=== PATIENT | male | born 1970 | race Caucasian/White ===

== ENCOUNTER 2017-03-18 10:26 | Inpatient (IN) | payer MEDICAID, OTHER ==
--- NOTE | 2017-03-18 12:40 | ED ---
Psych HPI - General Source: patient, RN notes reviewed Mode of arrival: ambulatory Limitations: no limitations <Stew Vargas - Last Filed: 03/18/17 12:51> <Abdullahi Evangelista - Last Filed: 03/18/17 13:14> - General Chief Complaint: Psychiatric Symptoms Stated Complaint: MENTAL HEALTH Time Seen by Provider: 03/18/17 10:30 - History of Present Illness Initial Comments: 46-year-old male present emergency department for psychiatric coloration. Patient states that he is depressed and suicidal. Patient denies any homicidal thoughts. Patient does admit to drug abuse of cocaine. patient states he does see a psychiatrist and takes medications for depression with states that helping. patient denies any physical complaints at this time. (Stew Vargas) - Related Data Home Medications Medication Instructions Recorded Confirmed Albuterol Sulfate [Ventolin Hfa] 2 puff INHALATION RT-Q4H PRN 03/18/17 03/18/17 Gabapentin [Neurontin] 300 mg PO BID 03/18/17 03/18/17 Hydrocodone/Acetaminophen [[place] 1 tab PO Q6HR PRN 03/18/17 03/18/17 7.5-325] LORazepam [Ativan] 0.5 mg PO QID PRN 03/18/17 03/18/17 Loratadine [Claritin] 10 mg PO DAILY 03/18/17 03/18/17 Metoprolol Succinate [Toprol XL] 25 mg PO DAILY 03/18/17 03/18/17 QUEtiapine FUMARATE [Seroquel Xr] 400 mg PO HS 03/18/17 03/18/17 Tamsulosin HCl [Flomax] 0.4 mg PO DAILY 03/18/17 03/18/17 buPROPion HCL [Wellbutrin SR] 300 mg PO QAM 03/18/17 03/18/17 Review of Systems ROS Other: All systems not noted in ROS Statement are negative. <Stew Vargas - Last Filed: 03/18/17 12:51> ROS Other: All systems not noted in ROS Statement are negative. <Abdullahi Evangelista - Last Filed: 03/18/17 13:14> ROS Statement: Those systems with pertinent positive or pertinent negative responses have been documented in the HPI. Past Medical History Past Medical History: No Reported History History of Any Multi-Drug Resistant Organisms: None Reported Past Surgical History: No Surgical Hx Reported Past Psychological History: Depression, PTSD Smoking Status: Current every day smoker Past Alcohol Use History: None Reported Past Drug Use History: None Reported <Stew Vargas - Last Filed: 03/18/17 12:51> General Exam Limitations: no limitations General appearance: alert, in no apparent distress Head exam: Present: atraumatic, normocephalic, normal inspection Eye exam: Present: normal appearance, PERRL, EOMI. Absent: scleral icterus, conjunctival injection, periorbital swelling ENT exam: Present: normal exam, normal oropharynx, mucous membranes moist Neck exam: Present: normal inspection, full ROM. Absent: tenderness, meningismus, lymphadenopathy Respiratory exam: Present: normal lung sounds bilaterally. Absent: respiratory distress, wheezes, rales, rhonchi, stridor Cardiovascular Exam: Present: regular rate, normal rhythm, normal heart sounds. Absent: systolic murmur, diastolic murmur, rubs, gallop, clicks Neurological exam: Present: alert, oriented X3, CN II-XII intact Psychiatric exam: Present: depressed, flat affect Skin exam: Present: warm, dry, intact, normal color. Absent: rash <Stew Vargas - Last Filed: 03/18/17 12:51> Course <Stew Vargas - Last Filed: 03/18/17 12:51> <Abdullahi Evangelista - Last Filed: 03/18/17 13:14> Vital Signs 03/18/17 10:29 Temperature 98.9 F Pulse Rate 98 Respiratory 20 Rate Blood Pressure 159/77 O2 Sat by Pulse 98 Oximetry - Reevaluation(s) Reevaluation #1: 03/18/17 13:13 I did personally do a [id number] evaluation the patient and did discuss the findings with him. Patient does have a flat affect he does have a depressed personality this time. He was evaluated and treatment by psychiatric service and will be admitted for evaluation inpatient. (Abdullahi Evangelista) Medical Decision Making <Stew Vargas - Last Filed: 03/18/17 12:51> <Abdullahi Evangelista - Last Filed: 03/18/17 13:14> - Medical Decision Making Patient was evaluated by EPS. Patient will be admitted at this time (Stew Vargas) - Lab Data Lab Results 03/18/17 Range/Units 11:10 Urine Opiates Screen Not Detected (NotDetected) Ur Oxycodone Screen Not Detected (NotDetected) Urine Methadone Screen Not Detected (NotDetected) Ur Propoxyphene Screen Not Detected (NotDetected) Ur Barbiturates Screen Not Detected (NotDetected) U Tricyclic Antidepress Not Detected (NotDetected) Ur Phencyclidine Scrn Not Detected (NotDetected) Ur Amphetamines Screen Not Detected (NotDetected) U Methamphetamines Scrn Not Detected (NotDetected) U Benzodiazepines Scrn Detected H (NotDetected) Urine Cocaine Screen Detected H (NotDetected) U Marijuana (THC) Screen Not Detected (NotDetected) Disposition Time of Disposition: 12:51 <Stew Vargas - Last Filed: 03/18/17 12:51> <Abdullahi Evangelista - Last Filed: 03/18/17 13:14> Clinical Impression: Depression, Suicidal ideation Disposition: ADMITTED IP TO THIS [facility] Condition: Stable Referrals: Tigist Butts MD [Primary Care Provider] - 1-2 days
[2017-03-18] MEDS ORDERED: ACETAMINOPHEN TAB 325 MG TAB PO PRN ×2 (16:12→16:59)
[2017-03-18] MEDS ORDERED: MAG HYDROX/AL HYDROX/SIMETH 30 ML CUP PO PRN ×2 (16:12→16:59)
[2017-03-18] MEDS ORDERED: LORazepam 1 MG TAB PO PRN (16:12)
[2017-03-18] MEDS ORDERED: MAGNESIUM HYDROXIDE 2,400 MG/10 ML CUP PO PRN ×2 (16:12→16:59)
[2017-03-18] MEDS ORDERED: QUEtiapine XR 200 MG TAB.ER.24H PO SCH (21:00)
[2017-03-18] MEDS: GABAPENTIN 300 MG CAP PO SCH (21:37)
[2017-03-19 08:53] LABS: Basophils # (A) 0.1 k/uL (0-0.2); Basophils % (A) 1 %; CH 31.6; Eosinophils # (A) 0.2 k/uL (0-0.7); Eosinophils % (A) 4 %; HDW 2.57; HGB 14.7 gm/dL (13.0-17.5); Luc # (Auto) 0.14; Luc % (Auto) 2; Lymphocytes # (A) 1.7 k/uL (1.0-4.8); Lymphocytes % (A) 28 %; MCH 30.5 pg (25.0-35.0); MCHC 32.6 g/dL (31.0-37.0); MCV 93.6 fL (80.0-100.0); Monocytes # (A) 0.4 k/uL (0-1.0); Monocytes % (A) 7 %; Neutrophils # (A) 3.6 k/uL (1.3-7.7); Neutrophils % (A) 59 %; RBC 4.81 m/uL (4.30-5.90); RDW 12.5 % (11.5-15.5); WBC 6.1 k/uL (3.8-10.6); WBC (Perox) 6.26
[2017-03-19 09:24] LABS: ALT 38 U/L (21-72); AST 20 U/L (17-59); Alkaline Phosphatase 48 U/L (38-126); Anion Gap 6 mmol/L; Blood Urea Nitrogen 13 mg/dL (9-20); Calcium 8.3 mg/dL (8.4-10.2); Carbon Dioxide 26 mmol/L (22-30); Chloride 108 mmol/L (98-107); Glucose 82 mg/dL (74-99); Non-African American GFR(MDRD) >60 (>60 ml/min/1.73 sqM); Potassium 3.6 mmol/L (3.5-5.1); Sodium 140 mmol/L (137-145); Total Bilirubin 0.5 mg/dL (0.2-1.3); Total Protein 5.4 g/dL (6.3-8.2)
[2017-03-19] MEDS: GABAPENTIN 300 MG CAP PO SCH ×4 (10:23→20:22)
[2017-03-19] MEDS: buPROPion XL 150 MG TAB.ER.24H PO SCH ×3 (10:23→10:43)
[2017-03-19] MEDS: TAMSULOSIN 0.4 MG CAP.ER.24H PO SCH ×3 (10:24→12:52)
[2017-03-19] MEDS: METOPROLOL SUCCINATE (ER) 25 MG TAB.ER.24H PO SCH ×3 (10:24→12:51)
[2017-03-19] MEDS: LORATADINE 10 MG TAB PO SCH ×3 (10:24→12:51)
[2017-03-19] MEDS: LORazepam 0.5 MG TAB PO PRN (12:05)
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
[2017-03-19] MEDS: HYDROcodone/APAP 5-325MG 1 EACH TAB PO PRN ×2 (12:52→20:25)
[2017-03-19] MEDS ORDERED: IPRATROPIUM-ALBUTEROL 3 ML NEB INHALATION PRN (16:44)
--- NOTE | 2017-03-19 20:04 | CONS ---
DATE OF CONSULTATION: REASON FOR CONSULTATION: A 46-year-old who was admitted to psychiatric unit because of pat presented suicidal. Patient denied any shortness of breath. Patient was complaining of yellowish sputum production. The patient denied any fever, chills, nausea, vomiting. I do not have any chest x-ray available at this point of time. The patient on exam is wheezing and does have expiratory wheezing because of which I started him on steroids. Patient is already on albuterol. The patient will be started on albuterol, ipratropium as well. REVIEW OF SYSTEMS: CONSTITUTIONAL: No fever, no malaise, no fatigue. HEENT: No recent visual problems or hearing problems. Denied any sore throat. CARDIOVASCULAR: No chest pain, orthopnea, PND, no palpitations, no syncope. PULMONARY: No shortness of breath, no cough, no hemoptysis. GASTROINTESTINAL: No diarrhea, no nausea, no vomiting, no abdominal pain. Normoactive bowel sounds. NEUROLOGICAL: No headaches, no weakness, no numbness. HEMATOLOGICAL: Denies any bleeding or petechiae. GENITOURINARY: Denies any burning micturition, frequency, or urgency. MUSCULOSKELETAL/RHEUMATOLOGICAL: Denies any joint pain, swelling, or any muscle pain. ENDOCRINE: Denies any polyuria or polydipsia. The rest of the 14 point review of systems is negative. Home medications include: Albuterol, gabapentin, hydrocodone, acetaminophen, lorazepam, Claritin, metoprolol, Seroquel, Tamsulosin and bupropion. 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 SOCIAL HISTORY: Patient continues to smoke a pack per day. Denied any alcohol abuse or any drug abuse. FAMILY HISTORY: Significant for psychiatric problems. PHYSICAL EXAMINATION: VITAL SIGNS: Temperature is 97.8, pulse 85, respiratory rate 20, blood pressure is 141/88, saturating at 94% on room air. GENERAL: The patient is alert and oriented x3, not in any acute distress. Well developed, well nourished. HEENT: Pupils are round and equally reacting to light. EOMI. No scleral icterus. No conjunctival pallor. Normocephalic, atraumatic. No pharyngeal erythema. No thyromegaly. CARDIOVASCULAR: S1 and S2 present. No murmurs, rubs, or gallops. PULMONARY: Patient has expiratory wheezing. No crackles were appreciated. No bronchophony, egophony. ABDOMEN: Soft, nontender, nondistended, normoactive bowel sounds. No palpable organomegaly. MUSCULOSKELETAL: No joint swelling or deformity. EXTREMITIES: No cyanosis, clubbing, or pedal edema. NEUROLOGICAL: Gross neurological examination did not reveal any focal deficits. SKIN: No rashes. LABORATORY DATA: TSH was done which is low at 0.037. Will obtain FT4 and will follow with the labs. ASSESSMENT AND PLAN: 1. Mild chronic obstructive pulmonary disease with minimal exacerbation. I will start him on inhalation steroids and also the patient will be started on albuterol ipratropium. 2. Low TSH. Will obtain T4. 3. History of cocaine abuse and nicotine abuse. Counseling was provided. 4. Benign prostatic hypertrophy. 5. Hypertension. 6. Peripheral neuropathy for which home medications will be continued. 7. Treatment of depression and suicidal ideation as per primary service. Thank you for letting me participate in this patient's care. Will sign off at this point of time. Please call us back if needed.
[2017-03-19] MEDS: buPROPion SR 150 MG TABLET.ER PO SCH (20:20)
[2017-03-19] MEDS: QUEtiapine 400 MG TAB PO SCH (20:21)
[2017-03-19] MEDS: SYMBICORT 160-4.5 MCG INHALER INHALATION SCH (21:46)
[2017-03-20] MEDS: HYDROcodone/APAP 5-325MG 1 EACH TAB PO PRN ×3 (02:52→18:38)
[2017-03-20 05:37] VITALS: PULSE 88
[2017-03-20] MEDS: SYMBICORT 160-4.5 MCG INHALER INHALATION SCH ×2 (07:07→20:20)
[2017-03-20] MEDS: GABAPENTIN 300 MG CAP PO SCH ×3 (08:58→20:26)
[2017-03-20] MEDS: LORATADINE 10 MG TAB PO SCH (08:58)
[2017-03-20] MEDS: buPROPion SR 150 MG TABLET.ER PO SCH ×2 (08:58→20:26)
[2017-03-20] MEDS: METOPROLOL SUCCINATE (ER) 25 MG TAB.ER.24H PO SCH (08:59)
[2017-03-20] MEDS: TAMSULOSIN 0.4 MG CAP.ER.24H PO SCH (09:00)
[2017-03-20] MEDS ORDERED: QUEtiapine XR 200 MG TAB.ER.24H PO SCH (09:00)
[2017-03-20] MEDS: LORazepam 0.5 MG TAB PO PRN (10:09)
[2017-03-20] MEDS: IBUPROFEN 800 MG TAB PO PRN (16:46)
[2017-03-20] MEDS: QUEtiapine 400 MG TAB PO SCH (20:26)
--- NOTE | 2017-03-20 23:20 | PN ---
DATE OF SERVICE: 03/20/2017 CHIEF COMPLAINT: The patient was admitted for depression with suicidal thinking with a plan of jumping in the river. He has not been sleeping for several days. He has poor appetite. He is feeling hopeless. He has had flashbacks and nightmares. INTERVAL HISTORY: The patient has been doing fair. He had a quiet evening last night. He had one situation at 8:00 p.m. that was documented by nursing where he apparently was leaning against the wall at one point and then standing up at another point. Shortly after that, he was down on all fours. He had made the statement day that he had suffered a back injury was having significant pain. Just prior to that, he was observed walking to the desk without any signs of pain response and then shortly after was walking in an extremely parted ways with his hands against the wall, walking in a very slow deliberate manner. He had requested pain medication. He slept over 6 hours last night. Today he has been up. He spends a fair amount of time in his room. He has been able to attend 2 groups and it is noted that he was appropriate. He talked about struggles he has had in family relationships with his parents. When I saw the patient at about 3:30 in the afternoon, he was in his room at the end of the [place]. He walked in a very slow deliberate manner, putting his hands against the wall, taking very short steps. He seemed to have the appearance of being in pain, though he was vague about that when I talked to him. When I asked him questions about his medications and in particular his [place], he talked at length about the injuries he had in the past. He made comments that I was overly focused on his pain medication, but that is not the basis for him coming into hospital. He was rather vague about his overall concerns, though he did agree to the idea that he presented with depression and felt distressed in his life. He did say that the increase in Seroquel has helped. He has not had change in his general health. Vital signs have been stable. Laboratory data as far as CBC and comprehensive metabolic profile were unremarkable. He tolerates his psychotropic medications. MENTAL STATUS: Patient gave fair eye contact. Psychomotor activity was slowed. Speech was monotone and soft. He spoke in a very measured way. Many of his statements were vague and brief, the meaning of which was hard to discern. He made comments that people seemed to ignore him or discredit him, including myself. He had a somewhat intense distressed affect. His mood was dysphoric. He had a suspicious, guarded in manner. It is noted that while he walked with a very slow guarded gait coming down for the evaluation, when he left the room, he walked in a much more comfortable-appearing manner with a broader gait and more relaxed movement. ASSESSMENT: I will continue the current diagnosis and treatment plan. Will continue to make efforts to engage the patient in individual and group therapeutic activities. I will continue psychotropic medications the same, including Seroquel XR 400 mg in the morning and Seroquel IR 400 mg at bedtime, Wellbutrin SR 150 mg twice a day, Neurontin 300 mg 3 times a day. I reviewed medication issues with the patient. I discussed the adjustments that Dr. Gomez had made and indicated that we needed to give the medication changes a few days before looking at any further medication options. I discussed issues related to long-term use of opioid pain medications and their complication in regard to mood issues as well as potential to exacerbate chronic pain. The patient had been started on ibuprofen 800 mg 3 times a day p.r.n. There might be consideration to initiate regular dosing. We will continue to focus on stabilization and discharge planning.
[2017-03-21] MEDS: HYDROcodone/APAP 5-325MG 1 EACH TAB PO PRN (06:25)
[2017-03-21] MEDS: IBUPROFEN 800 MG TAB PO PRN (06:26)
[2017-03-21 06:48] VITALS: BP 132/86; RESP 20; TEMP 97.9
[2017-03-21] MEDS: SYMBICORT 160-4.5 MCG INHALER INHALATION SCH (08:11)
[2017-03-21] MEDS: GABAPENTIN 300 MG CAP PO SCH (08:57)
[2017-03-21] MEDS: TAMSULOSIN 0.4 MG CAP.ER.24H PO SCH (08:57)
[2017-03-21] MEDS: buPROPion SR 150 MG TABLET.ER PO SCH (08:57)
[2017-03-21] MEDS: METOPROLOL SUCCINATE (ER) 25 MG TAB.ER.24H PO SCH (08:57)
[2017-03-21] MEDS: LORazepam 0.5 MG TAB PO PRN (08:57)
[2017-03-21] MEDS: LORATADINE 10 MG TAB PO SCH (08:58)
[2017-03-21] MEDS: QUEtiapine 200 MG TAB PO SCH ×2 (09:03→10:09)
--- NOTE | 2017-03-21 09:49 | P.DS ---
Providers Date of admission: 03/18/17 13:45 Expected date of discharge: 03/21/17 Attending physician: Akhil Gomez Consults: 03/18/17 16:59 Consult Physician Routine Consulting Provider: Sharri Elias Consult Reason/Comments: H and P and medical management. Do you want consulting provider notified?: Yes Primary care physician: Tigist Butts - Discharge Diagnosis(es) (1) Depression Current Visit: Yes Status: Acute Priority: High (2) Post traumatic stress disorder Current Visit: Yes Status: Acute Priority: High (3) Alcohol use disorder Current Visit: Yes Status: Acute Priority: Low Hospital Course: This patient is a 46-year-old single male who was admitted to the mental health unit through the emergency room with suicidal ideation. The patient reported a plan of jumping into the river. He had stated that he had been not sleeping for several nights due to not having his immediate release Seroquel. He reported that he had missed an appointment and after that his prescriber was on vacation and the medication could not be filled for him in her absence. Because of the lack of sleep energy was low he became more despondent depressed and hopeless. For full detail please refer to my psychiatric evaluation. Summary of hospital course: The patient was admitted to the mental health unit voluntarily. We reviewed his presenting symptoms and medication options. We utilize Wellbutrin SR and Seroquel. He was seen by an loss control manager for routine history and physical exam. The patient has a long history of incarceration in intermediate. He reported not feeling comfortable participating in the therapeutic milieu such as attending groups. He tended to isolate in his room. He states his previous diagnosis of PTSD is the reason. He reports improved sleep with use of immediate release Seroquel in the evening. We did titrate his Neurontin to 300 mg 3 times daily. He reports a complete resolution of any suicidal ideation as his sleep is improved. He does not wish to remain hospitalized further on a voluntary basis. Mental status exam: The patient is an overweight male appearing his stated age. He is bald, he is dressed in his own clothing hygiene grooming adequate. Eye contact is intermittent. Speech is fluent spontaneous nonpressured. Thought process is linear and goal-directed. He demonstrates no tangential thinking, loose associations, flight of ideas. He reports no suicidal or homicidal ideation intent or plan. He reports no auditory or visual hallucinations he endorses no specific delusions. There is no overt evidence of psychosis. He is able to appropriately participate in the conversation. He demonstrates no verbal or physical aggressiveness. Affect is constricted. He is oriented to person place and date area there is no evidence of abnormal involuntary movements. He demonstrates future oriented thinking as he lists things he must accomplish in the near future. Impressions 1. Depression unspecified, rule out major depressive disorder recurrent severe with history of psychosis, post traumatic stress disorder, alcohol use disorder , rule out cocaine use disorder 2. Cluster B traits 3. 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 Unemployment, transition from intermediate, limited support Plan: The patient is being discharged from mental health unit today. He will return to his previous housing, a reentry house. He will continue on Seroquel XR 400 mg in the morning, Seroquel immediate release 400 mg in the evening, he wishes to take the Wellbutrin SR 300 mg in the morning, he will continue Neurontin 300 mg 3 times daily. He is prescribed Ativan 0.5 mg up to 4 times daily by his outpatient provider he is encouraged to reduce that if possible. We discussed that he did have cocaine in his urine drug screen he states that was a one-time use and does not wish to participate in inpatient chemical dependency treatment. He will address this issue further as an outpatient with his mental health providers. The patient is not reporting any suicidal or homicidal ideation intent or plan there is no evidence of psychosis hypomania or teresa. He is clearly able to meet his activities of daily living such as eating, bathing, washing his clothes. He does not wish to remain voluntarily hospitalized and he does not require continued hospitalization on an involuntary basis. He is appropriate for transition to outpatient care. He is instructed to abstain from use of substances and to present to the hospital with any acute safety concerns. Patient Condition at Discharge: Stable Plan - Discharge Summary New Discharge Prescriptions: New Gabapentin [Neurontin] 300 mg PO TID #45 cap QUEtiapine [SEROquel] 400 mg PO HS #30 tab Continue Albuterol Sulfate [Ventolin HFA] 2 puff INHALATION RT-Q4H PRN PRN Reason: Shortness Of Breath Tamsulosin HCl [Flomax] 0.4 mg PO DAILY Metoprolol Succinate [Toprol XL] 25 mg PO DAILY Hydrocodone/Acetaminophen [[place] 7.5-325] 1 tab PO Q6HR PRN PRN Reason: Pain Loratadine [Claritin] 10 mg PO DAILY LORazepam [Ativan] 0.5 mg PO QID PRN PRN Reason: Anxiety buPROPion HCL [Wellbutrin SR] 300 mg PO QAM Changed QUEtiapine FUMARATE [Seroquel Xr] 400 mg PO DAILY #0 Discontinued Gabapentin [Neurontin] 300 mg PO BID Discharge Medication List Albuterol Sulfate [Ventolin HFA] 2 puff INHALATION RT-Q4H PRN 03/18/17 [History] Hydrocodone/Acetaminophen [[place] 7.5-325] 1 tab PO Q6HR PRN 03/18/17 [History] LORazepam [Ativan] 0.5 mg PO QID PRN 03/18/17 [History] Loratadine [Claritin] 10 mg PO DAILY 03/18/17 [History] Metoprolol Succinate [Toprol XL] 25 mg PO DAILY 03/18/17 [History] Tamsulosin HCl [Flomax] 0.4 mg PO DAILY 03/18/17 [History] buPROPion HCL [Wellbutrin SR] 300 mg PO QAM 03/18/17 [History] Gabapentin [Neurontin] 300 mg PO TID #45 cap 03/21/17 [Rx] QUEtiapine FUMARATE [Seroquel Xr] 400 mg PO DAILY #0 03/21/17 [Rx] QUEtiapine [SEROquel] 400 mg PO HS #30 tab 03/21/17 [Rx] Follow up Appointment(s)/Referral(s): Tigist Butts MD [Primary Care Provider] - 1-2 days
== END 2017-03-21 10:42 | disposition home or self-care (01) | DRG 885 ==
LOC: EC 10:26 → 3MHU 13:45
PROVIDERS: ADMIT Psychiatry & Neurology Psychiatry; ATTEND Psychiatry & Neurology Psychiatry
DX: F33.2 Major depressive disorder, recurrent severe without psychotic features (principal); R45.851 Suicidal ideations; F10.99 Alcohol use, unspecified with unspecified alcohol-induced disorder; J44.1 Chronic obstructive pulmonary disease with (acute) exacerbation; E66.3 Overweight; G62.9 Polyneuropathy, unspecified; F41.0 Panic disorder [episodic paroxysmal anxiety]; F51.5 Nightmare disorder; I10 Essential (primary) hypertension; T43.596A Underdosing of other antipsychotics and neuroleptics, initial encounter; F25.9 Schizoaffective disorder, unspecified; F43.10 Post-traumatic stress disorder, unspecified; F14.99 Cocaine use, unspecified with unspecified cocaine-induced disorder; M19.011 Primary osteoarthritis, right shoulder; M19.012 Primary osteoarthritis, left shoulder; M17.0 Bilateral primary osteoarthritis of knee; M47.9 Spondylosis, unspecified; D35.00 Benign neoplasm of unspecified adrenal gland; E27.9 Disorder of adrenal gland, unspecified; G89.29 Other chronic pain; R94.6 Abnormal results of thyroid function studies; G47.00 Insomnia, unspecified; F17.200 Nicotine dependence, unspecified, uncomplicated; N40.0 Benign prostatic hyperplasia without lower urinary tract symptoms; Z91.410 Personal history of adult physical and sexual abuse; Z62.810 Personal history of physical and sexual abuse in childhood; Z71.6 Tobacco abuse counseling; Z79.899 Other long term (current) drug therapy; Z91.19 Patient's noncompliance with other medical treatment and regimen; Z91.14 Patient's other noncompliance with medication regimen; Z81.1 Family history of alcohol abuse and dependence; Z81.3 Family history of other psychoactive substance abuse and dependence; Z91.5 Personal history of self-harm; Z87.828 Personal history of other (healed) physical injury and trauma; Z68.34 Body mass index [BMI] 34.0-34.9, adult; Z79.891 Long term (current) use of opiate analgesic; Z56.0 Unemployment, unspecified; Z65.3 Problems related to other legal circumstances; Z71.51 Drug abuse counseling and surveillance of drug abuser; Z63.9 Problem related to primary support group, unspecified
CPT/HCPCS: 80053; 80306; 82075; 84439; 84443; 85025; 99285

== ENCOUNTER 2017-04-16 16:55 | Emergency (ER) | payer OTHER ==
[2017-04-16 17:00] VITALS: BP 132/74; PULSE 100; RESP 20; TEMP 97.9
--- NOTE | 2017-04-16 17:47 | CT ---
EXAMINATION TYPE: CT brain [facility] DATE OF EXAM: 04/16/2017 COMPARISON: NONE HISTORY: Patient complains of dizziness that caused a fall down 5 stairs. Patient complains of right lower leg pain and continued dizziness post fall. CT DLP: 1411.4 mGycm Automated exposure control for dose reduction was used. TECHNIQUE: CT scan of the head and cervical spine are performed without contrast. FINDINGS: Ventricles of normal size. There is no mass effect nor midline shift. There is no sign of intracranial hemorrhage. The calvarium is intact. There is mild mucosal thickening in the ethmoid ai r cells. The cervical vertebra have normal alignment. Disc spaces are fairly normal. Posterior elements are in tact. Facet joints are intact. The skull base is intact. IMPRESSION: Negative CT scan of the brain. Negative CT scan of the cervical spine. No fracture.
--- NOTE | 2017-04-16 17:49 | XR ---
EXAMINATION TYPE: XR chest 1V DATE OF EXAM: 04/16/2017 COMPARISON: NONE HISTORY: Back pain TECHNIQUE: Single frontal view of the chest is obtained. FINDINGS: Heart and mediastinum are normal. Lungs are clear. Diaphragm is normal. Bony thorax is int act. IMPRESSION: Normal chest. No pneumothorax.
--- NOTE | 2017-04-16 17:49 | XR ---
EXAMINATION TYPE: XR thoracic spine 2V DATE OF EXAM: 04/16/2017 COMPARISON: NONE HISTORY: Back pain TECHNIQUE: 3 views FINDINGS: Vertebra have normal alignment. Posterior elements are intact. There is no paraspinal mass. I see no definite compression fracture. There is mild spurring in the lower thoracic spine. IMPRESSION: No acute abnormality of the thoracic spine.
--- NOTE | 2017-04-16 17:50 | XR ---
EXAMINATION TYPE: XR tibia fibula RT DATE OF EXAM: 04/16/2017 COMPARISON: NONE HISTORY: Pain TECHNIQUE: 4 views are findings I see no fracture nor dislocation. There is mild soft tissue swelling anterior to the proximal tibia . Knee joint and ankle joint appear intact. IMPRESSION: Soft tissue swelling. No fracture.
--- NOTE | 2017-04-16 18:01 | ED ---
Fall HPI - General Chief Complaint: Fall Stated Complaint: rt andrade injury/back pain Time Seen by Provider: 04/16/17 17:01 Source: patient, RN notes reviewed Mode of arrival: ambulatory Limitations: no limitations - History of Present Illness Initial Comments: 46 year old male presents emergency Department chief complaint fall. Patient states that he fell on some stairs yesterday. Patient states that he felt that he may have loss consciousness. Patient states is a very minimal headache. Patient states he is abrasion to his nose denies any epistaxis. He states his tetanus is up-to-date. Patient primary complaint of left rib, mid back pain and right leg pain. Patient states is able to ambulate with mild discomfort. Patient was sent over here by primary care physician for evaluation. Patient denies any chest pain or shortness of breath. Patient does have minimal pain on the left side of his ribs with deep inspiration. Patient denies any upper extremity injuries. Denies abdominal pain no nausea vomiting diarrhea constipation. - Related Data Home Medications Medication Instructions Recorded Confirmed Albuterol Sulfate [Ventolin HFA] 2 puff INHALATION RT-Q4H PRN 03/18/17 03/18/17 Hydrocodone/Acetaminophen [[place] 1 tab PO Q6HR PRN 03/18/17 03/18/17 7.5-325] LORazepam [Ativan] 0.5 mg PO QID PRN 03/18/17 03/18/17 Loratadine [Claritin] 10 mg PO DAILY 03/18/17 03/18/17 Metoprolol Succinate [Toprol XL] 25 mg PO DAILY 03/18/17 03/18/17 Tamsulosin HCl [Flomax] 0.4 mg PO DAILY 03/18/17 03/18/17 buPROPion HCL [Wellbutrin SR] 300 mg PO QAM 03/18/17 03/18/17 Previous Rx's Medication Instructions Recorded Gabapentin [Neurontin] 300 mg PO TID #45 cap 03/21/17 QUEtiapine FUMARATE [Seroquel Xr] 400 mg PO DAILY #0 03/21/17 QUEtiapine [SEROquel] 400 mg PO HS #30 tab 03/21/17 Allergies Allergy/AdvReac Type Severity Reaction Status Date / Time No Known Allergies Allergy Verified 04/16/17 17:00 Review of Systems ROS Statement: Those systems with pertinent positive or pertinent negative responses have been documented in the HPI. ROS Other: All systems not noted in ROS Statement are negative. Past Medical History Past Medical History: Hypertension History of Any Multi-Drug Resistant Organisms: None Reported Past Surgical History: No Surgical Hx Reported Past Psychological History: Depression, PTSD Smoking Status: Current every day smoker Past Alcohol Use History: None Reported Past Drug Use History: Heroin, Marijuana General Exam Limitations: no limitations General appearance: alert, in no apparent distress Head exam: Present: atraumatic, normocephalic, normal inspection Eye exam: Present: normal appearance, PERRL, EOMI. Absent: scleral icterus, conjunctival injection, periorbital swelling ENT exam: Present: normal oropharynx, mucous membranes moist, TM's normal bilaterally, normal external ear exam. Absent: normal exam (small abrasion to the nasal bridge) Neck exam: Present: normal inspection, full ROM. Absent: tenderness, meningismus, lymphadenopathy Respiratory exam: Present: normal lung sounds bilaterally, chest wall tenderness (Mild tenderness left lateral posterior ribs). Absent: respiratory distress, wheezes, rales, rhonchi, stridor Cardiovascular Exam: Present: regular rate, normal rhythm, normal heart sounds. Absent: systolic murmur, diastolic murmur, rubs, gallop, clicks GI/Abdominal exam: Present: soft, normal bowel sounds. Absent: distended, tenderness, guarding, rebound, rigid Extremities exam: Present: other (Upper extremity exam within normal limits, right tib-fib there is moderate swelling, ecchymosis noted tactile palpation patient is able to weight-bear there is no ankle tenderness patient's full range motion of right ankle and knee left lower extremity within normal limits) Back exam: Present: full ROM, tenderness (Mild tenderness of the thoracic region ). Absent: paraspinal tenderness, vertebral tenderness Neurological exam: Present: alert, oriented X3, CN II-XII intact, reflexes normal. Absent: motor sensory deficit Skin exam: Present: warm, dry, intact, normal color. Absent: rash Course Vital Signs 04/16/17 16:57 Temperature 97.9 F Pulse Rate 100 Respiratory 20 Rate Blood Pressure 132/74 O2 Sat by Pulse 99 Oximetry Medical Decision Making - Medical Decision Making 46-year-old male present emergency department for fall. Patient may have had a loss conscious. Patient has a mild concussion. Asians x-ray of lower extremity , ribs and back show no acute fracture. Return parameters were discussed. Disposition Clinical Impression: Fall, Contusion of leg, Concussion, Back pain Disposition: HOME SELF-CARE Condition: Stable Instructions: Concussion (ED) Additional Instructions: Please return to the Emergency Department if symptoms worsen or any other concerns. Referrals: Tigist Butts MD [Primary Care Provider] - 1-2 days Time of Disposition: 18:01
== END 2017-04-16 18:06 | disposition home or self-care (01) ==
LOC: EC 16:55
DX: S06.0X9A Concussion with loss of consciousness of unspecified duration, initial encounter (principal); S80.11XA Contusion of right lower leg, initial encounter; S00.31XA Abrasion of nose, initial encounter; M54.9 Dorsalgia, unspecified; R07.81 Pleurodynia; I10 Essential (primary) hypertension; F32.9 Major depressive disorder, single episode, unspecified; F17.200 Nicotine dependence, unspecified, uncomplicated; Z79.899 Other long term (current) drug therapy; W10.9XXA Fall (on) (from) unspecified stairs and steps, initial encounter
CPT/HCPCS: 70450; 71010; 72070; 72125; 99284

== ENCOUNTER → 2017-05-21 | Outpatient (CLI) | payer OTHER ==
[2017-05-17 11:14] VITALS: BMI 33.2
[2017-05-21 13:29] VITALS: BP 176/99; PULSE 96; RESP 16; TEMP 98.7
--- NOTE | 2017-05-21 14:59 | P.CONS ---
History of Present Illness - Reason for Consult Consult date: 05/21/17 - History of Present Illness The initial consultation visit for this 46 years old male with a chronic history of severe mid back ,low back pain and left shoulder pain, started after he fell from the second-story building, 2008, he had a traumatic injury to his spine and he had multiple rib fracture, and continued to have severe shoulder mid and low back pain is increased with any activity, pain is constant intensity of the pain fluctuates between 6/10 increased to 8-10, he tried physical therapy without any benefit and he tried different kind of pain medication without any significant improvement, he treied chiropractics without benefit , he deney any fever or night sweats he denies any change in the bowel movements or urination Past Medical History Past Medical History: Hypertension, Prostate Disorder Additional Past Medical History / Comment(s): BPH History of Any Multi-Drug Resistant Organisms: None Reported Past Surgical History: No Surgical Hx Reported Past Anesthesia/Blood Transfusion Reactions: No Reported Reaction Additional Past Anesthesia/Blood Transfusion Reaction / Comm: IT CONSULTING MANAGER PRIOR SURGICAL HX Past Psychological History: Depression, PTSD Smoking Status: Current every day smoker Past Alcohol Use History: None Reported Additional Past Alcohol Use History / Comment(s): HAS SMOKED 1-1 1/2 PPD SINCE AGE 10 Past Drug Use History: None Reported - Past Family History Mother Family Medical History: No Reported History Medications and Allergies Home Medications Medication Instructions Recorded Confirmed Type Hydrocodone/Acetaminophen [[place] 1 tab PO Q6HR PRN 03/18/17 05/21/17 History 7.5-325] Loratadine [Claritin] 10 mg PO DAILY 03/18/17 05/21/17 History Metoprolol Succinate [Toprol XL] 25 mg PO DAILY 03/18/17 05/21/17 History Tamsulosin HCl [Flomax] 0.4 mg PO DAILY 03/18/17 05/21/17 History buPROPion HCL [Wellbutrin SR] 300 mg PO QAM 03/18/17 05/21/17 History Gabapentin 600 mg PO TID 05/17/17 05/21/17 History LORazepam [Ativan] 1 mg PO BID 05/17/17 05/21/17 History QUEtiapine FUMARATE [Seroquel Xr] 400 mg PO QAM 05/17/17 05/21/17 History Allergies Allergy/AdvReac Type Severity Reaction Status Date / Time No Known Allergies Allergy Verified 05/21/17 13:09 Physical Exam Vitals: Vital Signs Temp Pulse Resp BP Pulse Ox 05/21/17 13:14 98.7 F 96 16 176/99 96 Social history : smoker , NO ETOH , NO Illegal drugs use Review of Systems : 1- Constitutional : no chills , no fever , no night sweats , 2- Ears : no ear discharge , no change in hearing 3-Nose, Mouth ,Throat ; no bleeding gums, no sore throat , no epistaxis , 4-Cardiovascular : Denies chest pain, , no orthopnea , no palpitation 5-Respiratory : Denies cough , no dyspnea , no hemoptysis 6-Gastrointestinal :, no change in bowel habits , no coffee- ground emesis . 7-Genitourinary : No hematuria , no discharge , no incontinence, 8-Musculoskeletal : No gait dysfunction , report low back pain , 9- Neurological : no ataxia , no tremor , no sezure , 10-Psychatric , no suicidal ideation no hallucination ,++PSTD ,++depression 11- Endocrine : no cold intolerence , no polyuria , no polydypsia , 12-Hematologic : no easy bleeding , no easy brusing , 13-Allergic / immunology : no angioedema , no wheezing ,no allergic rhinitis 14-Integumentary : no brttle nails , no change hair / nails , no foot/leg ulcers . Physical Examinations : 1-Constitutional : Cooperative , not in acute distress . 2-HEENT : nech ; supple , no Lymphadenopathy , no Thyromegaly , :eyes , no icterus, no photophobia . ENT : , normal oropharynx , no Thrush 3- Respiratory : Chest clear to auscultations Bilaterally , no wheezing . 4- Cardiovascular : regular rate and rhythem , S1 , S2 , no S3 , no S4. 5- Gastrointestinal: abdomen soft no tenderness , no organomegally . 6- Genitourinary : Defferred . 7-Integumentary : No cellulitis , no ulcers , normal skin turgor , no cyanotic . 8- neurologic : Cranial nerve II to XII intact , no focal neurological deffecit 9-psychatric : alert , oriented X 3 , appropriate affect , intact judgment and insight . 10-Lymphatic : no Lymphadenopathy. 11- musculoskeltal: normal gait left shoulder area = passive and active movement associatedsevere pain Cervical Spine motor stregnth in the deltoid and biceps, normal right side , normal Left side thoracic spine = positive facet loading test thoracic area, double trigger point in the thoracic paravertebral muscles Lumber spine moter stegnth lower extremities ,thigh and legs 5/5 Right side , 5/5 Left side deep tendon reflexes : normal Knee Jerk , normal ankle Jerk Results Comments: MRI of the thoracic spine without contrast = multi-level paracentral disc protrusion T 4-5 ----to T9-10, and superimposed facet arthropathy Assessment and Plan Plan: Assessment and plan= 1-mid back pain secondary to thoracic bulging disc disease , thoracic spondylosis, and myofascial pain syndrome thoracic paravertebral muscles, 2-with shoulder pain secondary to osteoarthritis of the left shoulder. he could benefit from thoracic epidural steroid injection T89 or T 78 , also patient could benefit from trigger point injections Prescription for Flexeril 10 mg 3 times a day given, also prescription for Neurontin 600 mg 3 times a day given , If patient continued to have pain after the injection and would consider doing diagnostic medial branch blocks thoracic area on possible radiofrequency Time with Patient: Greater than 30
== END | disposition home or self-care (01) ==
LOC: PNWHC3 12:33
PROVIDERS: ATTEND Specialist
DX: M51.24 Other intervertebral disc displacement, thoracic region (principal); M47.814 Spondylosis without myelopathy or radiculopathy, thoracic region; M79.1 Myalgia; M19.012 Primary osteoarthritis, left shoulder; I10 Essential (primary) hypertension; F17.200 Nicotine dependence, unspecified, uncomplicated; Z79.899 Other long term (current) drug therapy
CPT/HCPCS: 99211

== ENCOUNTER 2017-12-02 21:04 | Inpatient (IN) | payer MEDICAID, OTHER ==
--- NOTE | 2017-12-02 22:16 | ED ---
Psych HPI - General Chief Complaint: Psychiatric Symptoms Stated Complaint: anxiety Time Seen by Provider: 12/02/17 21:32 Source: patient Mode of arrival: ambulatory Limitations: physical limitation (Not fully forthcoming) - History of Present Illness Initial Comments: This patient is a 47-year-old man who presents here for help with depression. The patient is not fully forthcoming with me. He states that he had been talking with a friend who persuaded him to come here for help. He does admit that he has long-standing history of depression and then he stopped following up with [facility] and stopped taking his medication a number of months ago. The patient does admit having thoughts of harming himself but is not forthcoming. MD Complaint: suicidal ideation, feels depressed -: unknown Associated Psychiatric Symptoms: depression History of same: Yes Quality: constant, getting worse Improves With: none Worsens With: none Context: not taking psychiatric medications Associated Symptoms: denies other symptoms - Related Data Home Medications Medication Instructions Recorded Confirmed No Known Home Medications [No 12/02/17 12/02/17 Known Home Medications] Allergies Allergy/AdvReac Type Severity Reaction Status Date / Time No Known Allergies Allergy Verified 12/02/17 22:49 Review of Systems ROS Statement: Those systems with pertinent positive or pertinent negative responses have been documented in the HPI. ROS Other: All systems not noted in ROS Statement are negative. Limitations: ROS unobtainable due to patients medical condition (Patient not fully cooperative with history.) Respiratory: Denies: cough, dyspnea Cardiovascular: Denies: chest pain Gastrointestinal: Denies: abdominal pain Neurological: Denies: headache Psychiatric: Reports: as per HPI, depression, suicidal thoughts Past Medical History Past Medical History: Hypertension History of Any Multi-Drug Resistant Organisms: None Reported Past Surgical History: No Surgical Hx Reported Past Psychological History: Depression, PTSD Smoking Status: Current every day smoker Past Alcohol Use History: Occasional Past Drug Use History: Heroin, Marijuana General Exam Limitations: no limitations General appearance: alert, in no apparent distress Head exam: Present: atraumatic, normocephalic Eye exam: Present: normal appearance. Absent: scleral icterus, conjunctival injection Respiratory exam: Present: normal lung sounds bilaterally. Absent: respiratory distress, wheezes, rales, rhonchi, stridor Cardiovascular Exam: Present: regular rate, normal rhythm, normal heart sounds. Absent: systolic murmur, diastolic murmur, rubs, gallop GI/Abdominal exam: Present: soft. Absent: tenderness, guarding, rebound Back exam: Present: normal inspection Neurological exam: Present: alert, normal gait Psychiatric exam: Present: depressed, flat affect, suicidal ideation. Absent: agitated, anxious, manic, homicidal ideation Skin exam: Present: warm, dry, intact, normal color. Absent: rash Course Vital Signs 12/02/17 21:23 Temperature 99.9 F H Pulse Rate 91 Respiratory 18 Rate Blood Pressure 160/84 O2 Sat by Pulse 96 Oximetry Disposition Clinical Impression: Suicidal ideation, Mood disorder Disposition: ADMITTED IP TO THIS HOSP Condition: Poor
[2017-12-02] MEDS ORDERED: MAG HYDROX/AL HYDROX/SIMETH 30 ML CUP PO PRN (23:20)
[2017-12-02] MEDS ORDERED: traZODone HCL 100 MG TAB PO PRN (23:23)
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
--- NOTE | 2017-12-03 12:40 | P.HPMEDMHU ---
History of Present Illness H&P Date: 12/03/17 Chief Complaint: left knee pain Patient is a 47-year-old male with a past medical history of high blood pressure, not currently taking medication, depression, and tobacco abuse who presented to the emergency department with complaints of suicidal ideation. For me he will not talk about why he came to the emergency department and does not want to discuss his mental health. Patient seen and examined. He states he fell approximately 10 days ago and since that point in time he has had left knee pain. He states that the redness has been increasing. It hurts worse with movement and better with rest. He has not had any purulent drainage. He reports that he has had a history of an infected wound in the right lower extremity that required IV antibiotics. He also reports a 40 pound weight loss in the last 6 weeks. He denies any cough, cold, fever, flu. He states his appetite has been decreased. He denies any blood in his stool blood in his urine and coughing up blood. He has no other complaints currently. Review of Systems General: no fever/chills, no rigors, + weight loss, + decreased appetite, no unusual fatigue Eyes: no noticable visual changes, no loss of vision ENT: no rhinorrhea, no congestion, no sore throat Cardiovascular: no chest pain, no palpitations, no preyncope/syncope, no edema Pulmonary: no shortness of breath, no wheezing, no cough Abdominal: no abdominal pain, no constipation, no diarrhea, no vomiting, no nausea Genitourinary: no dysuria, no urinary frequency, no unusual discharge/odor Neuro: no unusual paresthesias, no unusual paresis/paralysis, no headache Dermatologic: Multiple abrasions of her bilateral knees, no unusual lesions, no unusual changes in nails Hematologic: no hemoptysis, no hematuria, no melena/hematochezia Psychiatric: + Depressed mood, no changes in sleep pattern Musculoskeletal: Left knee pain 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 History of Any Multi-Drug Resistant Organisms: None Reported Past Surgical History: No Surgical Hx Reported Past Psychological History: Depression, PTSD Smoking Status: Current every day smoker Past Alcohol Use History: Occasional Past Drug Use History: Heroin, Marijuana Additional History: was living alone, no assistive devices - Past Family History Father Family Medical History: Diabetes Mellitus, Myocardial Infarction (DE) Medications and Allergies Home Medications Medication Instructions Recorded Confirmed Type No Known Home Medications [No 12/02/17 12/02/17 History Known Home Medications] Allergies Allergy/AdvReac Type Severity Reaction Status Date / Time No Known Allergies Allergy Verified 12/02/17 22:49 Physical Exam Osteopathic Statement: *. No significant issues noted on an osteopathic structural exam other than those noted in the History and Physical/Consult. Vitals: Vital Signs Temp Pulse Pulse Resp BP BP Pulse Ox 12/03/17 10:13 67 16 137/79 12/03/17 01:25 99.8 F H 80 16 156/88 97 12/02/17 23:51 97.8 F 82 16 144/80 97 12/02/17 21:23 99.9 F H 91 18 160/84 96 Intake and Output 12/02/17 12/03/17 12/03/17 22:59 06:59 14:59 Other: Weight 106.594 kg 104.326 kg General: non toxic, no distress, appears at stated age, normal weight Derm: Multiple abrasions over bilateral lower extremities no unusual ecchymoses , warm, dry Head: atraumatic, normocephalic, symmetric Eyes: EOMI, no lid lag, anicteric sclera, pupils equal round reactive to light ENT: Nose and ears atraumatic, no thrush, no pharyngeal erythema Neck: No thyromegaly, no cervical lymphadenopathy, trachea midline, supple Mouth: no lip lesion, mucus membranes moist Cardiovascular: S1S2 reg, no murmur, positive posterior tibial pulse bilateral, no edema, capillary refill less than 2 seconds Lungs: Decreased breath sounds bilateral bases, no rhonchi, no rales , no accessory muscle use Abdominal: soft, nontender to palpation, no guarding, no appreciable organomegaly, normal bowel sounds Ext: no gross muscle atrophy, muscle strength 5 out of 5 in all 4 extremities grossly, no contractures, + tenderness to palpation of left knee with area of swelling Neuro: CN II-XI grossly intact, light touch intact all 4 extremities, finger to nose within normal limits, Psych: Alert, oriented, flat affect Cranial Nerve Examination - Cranial Nerves Cranial Nerve II- Optic: Intact Cranial Nerve III- Oculomotor: Intact Cranial Nerve IV- Trochlear: Intact Cranial Nerve V- Trigeminal: Intact Cranial Nerve - Abducens: Intact Cranial Nerve VII- Facial: Intact Cranial Nerve VIII- Auditory: Intact Cranial Nerve IX- Glossopharyngeal: Intact Cranial Nerve X- Vagus: Intact Cranial Nerve XI- Accessory: Intact Cranial Nerve XII- Hypoglossal: Intact Assessment and Plan Assessment: Left knee cellulitis and pain with history of fall -Bactrim -Check CBC and CMP -Check x-ray left knee Weight loss -Patient reports decreased appetite -We'll also order screening x-ray patient's history of tobacco abuse. Low-dose CT of the chest would be best for screening of cancer however this may deferred to the outpatient setting. -Patient would not be due yet for any other agent based cancer screening, he denies any blood in his stools. Tobacco abuse -Cessation -Nicotine replacement Hypertension, not currently on medications -Blood pressure accelerated with maximum 160/84 we will resume metoprolol 25 mg daily that he was on during prior admission Suicidal ideation -Your psych management. Thank you for allowing us to participate in the care of this patient. We will follow peripherally. Do not hesitate to contact us with questions. Someone can be reached from the [facility] hospitalist group at all hours of the day at [phone].
[2017-12-03] MEDS ORDERED: METOPROLOL SUCCINATE (ER) 25 MG TAB.ER.24H PO SCH (12:45)
[2017-12-03] MEDS: SULFAMETHOX-TMP 800-160MG 1 EACH TAB PO SCH ×2 (13:15→21:29)
[2017-12-03] MEDS: ACETAMINOPHEN TAB 325 MG TAB PO PRN ×3 (13:52→21:34)
[2017-12-03] MEDS: LORazepam 1 MG TAB PO PRN ×2 (13:52→21:35)
--- NOTE | 2017-12-03 15:01 | XR ---
EXAMINATION TYPE: XR knee complete LT DATE OF EXAM: 12/03/2017 COMPARISON: NONE HISTORY: 47-year-old male pain, fall, lateral edema TECHNIQUE: 3 views FINDINGS: Moderate knee joint effusion is present. Extensor mechanism appears intact. No acute fracture, sublux ation, or dislocation seen. IMPRESSION: No acute osseous abnormality seen. However, there is a moderate knee joint effusion. If concern for i nternal derangement, MRI can be performed.
--- NOTE | 2017-12-03 15:23 | XR ---
EXAMINATION TYPE: XR chest 2V DATE OF EXAM: 12/03/2017 COMPARISON: 04/16/2017 HISTORY: 47 year-old male shortness of breath and weight loss TECHNIQUE: Frontal and lateral views FINDINGS: The cardiomediastinal silhouette, aorta, and pulmonary vasculature are within normal limits. Lungs an d pleural spaces are clear. Appears to be some bony deformity at the left AC joint and coracoclavicul ar interval likely relating to prior AC joint sprain/separation. IMPRESSION: No acute cardiopulmonary process. Suspect a prior left sided AC joint separation. Consider orthopedic referral if not previously evaluated. The technologist reports that the patient is unable to lift hi s left arm.
[2017-12-03] MEDS: NICOTINE 21MG/24HR PATCH TRANSDERM SCH (16:54)
[2017-12-03] MEDS ORDERED: cloNIDine HCL 0.2 MG TAB PO PRN (17:19)
[2017-12-03] MEDS: ZIPRASIDONE 20 MG VIAL IM PRN (17:37)
[2017-12-04] MEDS: LORazepam 1 MG TAB PO PRN ×2 (06:20→12:20)
[2017-12-04] MEDS: ACETAMINOPHEN TAB 325 MG TAB PO PRN ×4 (06:20→20:31)
[2017-12-04] MEDS: NICOTINE 21MG/24HR PATCH TRANSDERM SCH (08:45)
[2017-12-04] MEDS: LISINOPRIL 20 MG TAB PO SCH (08:45)
[2017-12-04] MEDS: SULFAMETHOX-TMP 800-160MG 1 EACH TAB PO SCH ×2 (08:45→20:30)
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
[2017-12-04] MEDS: GABAPENTIN 400 MG CAP PO SCH ×2 (16:00→20:32)
[2017-12-04] MEDS ORDERED: ZIPRASIDONE 20 MG VIAL IM ONE (20:31)
[2017-12-04] MEDS: ZIPRASIDONE 20 MG VIAL IM PRN (20:32)
[2017-12-04] MEDS ORDERED: QUEtiapine 200 MG TAB PO SCH (21:00)
[2017-12-04 21:14] LABS: Appearance,Urine Clear (Clear); Bilirubin,Urine Negative (Negative); Blood,Urine Negative (Negative); Color,Urine Light Yellow; Glucose,Urine (UA) Negative (Negative); Ketones,Urine Negative (Negative); Leukocyte Esterase,Urine Negative (Negative); Nitrite,Urine Negative (Negative); PH, Urine 6.5 (5.0-8.0); Protein,Urine Negative (Negative); Specific Gravity,Urine 1.011 (1.001-1.035); Urobilinogen,Urine <2.0 mg/dL (<2.0)
[2017-12-04 21:25] LABS: Amphetamine Screen,Urine Not Detected (NotDetected); Barbiturate Screen,Urine Not Detected (NotDetected); Benzodiazepines Screen,Urine Detected (NotDetected); Cocaine Screen,Urine Detected (NotDetected); Methadone Screen, Urine Not Detected (NotDetected); Opiate Screen,Urine Not Detected (NotDetected); Oxycodone Screen, Urine Not Detected (NotDetected); Phencyclidine Screen,Urine Not Detected (NotDetected); Tricyclic Antidepressant,Urine Not Detected (NotDetected); Urn Cannabinoid Scrn Not Detected (NotDetected)
[2017-12-05] MEDS ORDERED: NAPHAZOLINE-PHENIRA 0.025-0.3% DROPS 15 ML BTL BOTH EYES PRN (05:23)
[2017-12-05] MEDS ORDERED: KETOTIFEN 0.025% OPHTH DROPS 5 ML BTL BOTH EYES ONE (06:00)
[2017-12-05] MEDS: GABAPENTIN 400 MG CAP PO SCH ×3 (08:55→21:53)
[2017-12-05] MEDS: LISINOPRIL 20 MG TAB PO SCH (08:55)
[2017-12-05] MEDS: SULFAMETHOX-TMP 800-160MG 1 EACH TAB PO SCH ×2 (08:56→21:53)
[2017-12-05] MEDS: NICOTINE 21MG/24HR PATCH TRANSDERM SCH (08:56)
[2017-12-05] MEDS: LORazepam 1 MG TAB PO PRN ×3 (08:58→21:56)
[2017-12-05] MEDS: ACETAMINOPHEN TAB 325 MG TAB PO PRN ×2 (08:59→12:59)
[2017-12-05] MEDS ORDERED: QUEtiapine 100 MG TAB PO SCH (09:00)
[2017-12-05] MEDS ORDERED: buPROPion SR 100 MG TABLET.ER PO SCH (09:00)
[2017-12-05] MEDS ORDERED: NAPROXEN 250 MG TAB PO PRN (09:24)
[2017-12-05] MEDS ORDERED: diphenhydrAMINE 50 MG CAP PO STA (09:26)
[2017-12-05] MEDS: NICOTINE POLACRILEX 2 MG GUM BUCCAL PRN ×3 (09:52→21:56)
[2017-12-05] MEDS: NAPROXEN 250 MG TAB PO PRN ×2 (10:32→21:54)
[2017-12-05 11:49] LABS: ALT 32 U/L (21-72); AST 18 U/L (17-59); Albumin 3.6 g/dL (3.5-5.0); Alkaline Phosphatase 77 U/L (38-126); Anion Gap 10 mmol/L; Blood Urea Nitrogen 11 mg/dL (9-20); Calcium 9.2 mg/dL (8.4-10.2); Carbon Dioxide 27 mmol/L (22-30); Chloride 104 mmol/L (98-107); Cholesterol 166 mg/dL (<200); Glucose 95 mg/dL (74-99); HDL Cholesterol 33 mg/dL (40-60); LDL Cholesterol,Calculated 77 mg/dL (0-99); Potassium 4.9 mmol/L (3.5-5.1); Sodium 141 mmol/L (137-145); Total Bilirubin 0.2 mg/dL (0.2-1.3); Total Protein 6.1 g/dL (6.3-8.2); Triglycerides 279 mg/dL (<150)
[2017-12-05 12:16] LABS: Basophils # (A) 0.1 k/uL (0-0.2); Basophils % (A) 1 %; Eosinophils # (A) 0.2 k/uL (0-0.7); Eosinophils % (A) 3 %; HCT 50.1 % (39.0-53.0); HGB 15.7 gm/dL (13.0-17.5); Lymphocytes # (A) 1.2 k/uL (1.0-4.8); Lymphocytes % (A) 17 %; MCH 28.7 pg (25.0-35.0); MCHC 31.4 g/dL (31.0-37.0); MCV 91.5 fL (80.0-100.0); Mean Platelet Volume 6.8; Monocytes # (A) 0.6 k/uL (0-1.0); Monocytes % (A) 9 %; Neutrophils # (A) 4.6 k/uL (1.3-7.7); Neutrophils % (A) 67 %; Platelet Count 283 k/uL (150-450); RBC 5.47 m/uL (4.30-5.90); RDW 12.5 % (11.5-15.5); WBC 6.8 k/uL (3.8-10.6)
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
[2017-12-05] MEDS: QUEtiapine 100 MG TAB PO SCH ×2 (15:04→21:53)
[2017-12-05 20:23] LABS: Hemoglobin A1C 5.4 % (4.0-6.0)
[2017-12-06] MEDS: SULFAMETHOX-TMP 800-160MG 1 EACH TAB PO SCH ×2 (08:49→21:21)
[2017-12-06] MEDS: LISINOPRIL 20 MG TAB PO SCH (08:49)
[2017-12-06] MEDS: buPROPion SR 150 MG TABLET.ER PO SCH (08:51)
[2017-12-06] MEDS: QUEtiapine 100 MG TAB PO SCH ×3 (08:52→21:21)
[2017-12-06] MEDS: GABAPENTIN 400 MG CAP PO SCH ×3 (08:52→21:21)
[2017-12-06] MEDS: LORazepam 1 MG TAB PO PRN ×3 (08:52→22:13)
[2017-12-06] MEDS: ACETAMINOPHEN TAB 325 MG TAB PO PRN ×3 (08:52→21:26)
[2017-12-06] MEDS: NICOTINE POLACRILEX 2 MG GUM BUCCAL PRN ×4 (09:27→18:45)
[2017-12-06] MEDS: NAPROXEN 250 MG TAB PO PRN (10:34)
[2017-12-06] MEDS: METHYL SALICYLATE/MENTHOL CREAM 5 OZ TOPICAL PRN ×3 (10:35→21:29)
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
[2017-12-07] MEDS: METHYL SALICYLATE/MENTHOL CREAM 5 OZ TOPICAL PRN ×3 (04:33→21:55)
[2017-12-07] MEDS: ACETAMINOPHEN TAB 325 MG TAB PO PRN ×3 (04:33→21:54)
[2017-12-07] MEDS: NICOTINE POLACRILEX 2 MG GUM BUCCAL PRN ×3 (04:34→13:44)
[2017-12-07] MEDS: diphenhydrAMINE 25 MG CAP PO PRN (05:00)
[2017-12-07] MEDS: SULFAMETHOX-TMP 800-160MG 1 EACH TAB PO SCH ×2 (07:56→21:02)
[2017-12-07] MEDS: GABAPENTIN 400 MG CAP PO SCH ×4 (07:56→21:55)
[2017-12-07] MEDS: LISINOPRIL 20 MG TAB PO SCH (07:56)
[2017-12-07] MEDS: QUEtiapine 100 MG TAB PO SCH ×3 (07:56→21:02)
[2017-12-07] MEDS: buPROPion SR 150 MG TABLET.ER PO SCH (07:56)
[2017-12-07] MEDS: LORazepam 1 MG TAB PO PRN ×2 (09:05→17:57)
[2017-12-07] MEDS: LORATADINE 10 MG TAB PO SCH (11:59)
--- NOTE | 2017-12-07 15:15 | P.PN ---
Progress Note - Text Interval history: The patient is found in his room he is on one-to-one supervision due to previous safety concerns. He reluctantly follows me to an interview room. The patient states that his mood is depressed he feels hopeless and tries to think of reasons to get out of bed each day. Apparently he was placed on one-to-one supervision as he states he could think of ideas of harming himself here in the hospital. He states although he verbalizes that he has no intent of acting on those thoughts. He assures me today that he can keep himself here on the mental health unit however he makes no guarantees when he is discharged. He complains of shoulder pain and demands that his naproxen is changed. He would like to have prazosin restarted. The previous notes are reviewed and it seems that the patient had a history of falls on that medication. The patient has been selectively attending groups. Mental status exam: The patient is alert he is dressed in his own clothing. He is irritable and demanding during the session. He describes having a depressed mood with suicidal ideation. He states he can keep himself safe here in the hospital however and does not require one-to-one supervision. He is endorsing no thoughts of harming others is endorsing no hallucinations. He states he still struggles with nightmares. He demonstrates no verbal or physical aggressiveness. He demonstrates no abnormal involuntary movements. He is oriented to person place and date. Insight and judgment are limited. He maintains he irritable demanding affect throughout the session. Plan: The patient's will continue on his current psychotropic medications we will change the naproxen to a 3 time a day dose. It does not appear that he requires one-to-one supervision here on the mental health unit. This was discussed with nursing staff who have been interacting with him over the last few days. He will be placed back on general suicide precautions. Vital signs reviewed. He is encouraged to fully participate in the milieu.
[2017-12-07] MEDS: NAPROXEN 250 MG TAB PO PRN (17:58)
[2017-12-08] MEDS: ACETAMINOPHEN TAB 325 MG TAB PO PRN ×3 (04:51→22:08)
[2017-12-08] MEDS: METHYL SALICYLATE/MENTHOL CREAM 5 OZ TOPICAL PRN ×3 (04:52→16:04)
[2017-12-08] MEDS: NICOTINE POLACRILEX 2 MG GUM BUCCAL PRN ×2 (04:52→12:25)
[2017-12-08] MEDS: GABAPENTIN 400 MG CAP PO SCH ×3 (08:38→22:07)
[2017-12-08] MEDS: buPROPion SR 100 MG TABLET.ER PO SCH (08:38)
[2017-12-08] MEDS: LISINOPRIL 20 MG TAB PO SCH (08:39)
[2017-12-08] MEDS: QUEtiapine 100 MG TAB PO SCH ×3 (08:39→22:07)
[2017-12-08] MEDS: LORATADINE 10 MG TAB PO SCH (08:39)
[2017-12-08] MEDS: SULFAMETHOX-TMP 800-160MG 1 EACH TAB PO SCH ×2 (08:39→22:07)
[2017-12-08] MEDS: NAPROXEN 250 MG TAB PO PRN ×2 (08:41→16:05)
[2017-12-08] MEDS: LORazepam 1 MG TAB PO PRN ×2 (08:43→16:04)
[2017-12-08] MEDS: MAGNESIUM HYDROXIDE 2,400 MG/10 ML CUP PO PRN (09:05)
[2017-12-08 10:53] VITALS: BMI 31.4
--- NOTE | 2017-12-08 12:28 | P.PN ---
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 He engages in conversation today. He has somatic complaints regarding his shoulder. He has a long-standing shoulder injury involving an before meals separation. He asked to have a sling which he will use at home sometimes. He wants to be restarted on tramadol. He discusses concerns that the naproxen is not given exactly the same time as the Neurontin as he feels a need to be given together for them to work. The patient's was taken off of one- to-one yesterday. He states that he has no intent or plan of harming himself here in the hospital. He feels that we would be able to give him the sling without any concern of him injuring himself with it. He continues to complain of nightmares in the evening. The patient is an overweight male he seated calmly in the chair. He reports a depressed mood with suicidal ideation. No homicidal ideation. He reports no intent or plan of harming himself here in the hospital. He is endorsing no auditory or visual hallucinations or specific delusions. He describes having disturbing nightmares each night. He demonstrates no verbal or physical aggressiveness. He is less irritable today versus yesterday. He ambulates favoring his left arm leading to hang down at his side and not using it during our interaction today. He is oriented to person place and date. He demonstrates no tangential thinking loose associations or flight of ideas. He does continue to demonstrate manipulative behavior across the last few days which is evident after conferring with staff members. Plan: The patient will continue on his current medications. We will explore the option of him using a sling for his left upper extremity. He continues to be focused on medication needs. He is encouraged to continue participating in the milieu. He remains safe with general suicide precautions. He does not require one-to-one supervision at this time.
[2017-12-09] MEDS: METHYL SALICYLATE/MENTHOL CREAM 5 OZ TOPICAL PRN (04:50)
[2017-12-09] MEDS: LORATADINE 10 MG TAB PO SCH (08:51)
[2017-12-09] MEDS: GABAPENTIN 400 MG CAP PO SCH ×3 (08:51→21:14)
[2017-12-09] MEDS: buPROPion SR 100 MG TABLET.ER PO SCH (08:51)
[2017-12-09] MEDS: SULFAMETHOX-TMP 800-160MG 1 EACH TAB PO SCH (08:51)
[2017-12-09] MEDS: LISINOPRIL 20 MG TAB PO SCH (08:51)
[2017-12-09] MEDS: NAPROXEN 250 MG TAB PO PRN ×2 (08:52→20:24)
[2017-12-09] MEDS: QUEtiapine 100 MG TAB PO SCH ×3 (08:52→20:23)
[2017-12-09] MEDS: MAGNESIUM HYDROXIDE 2,400 MG/10 ML CUP PO PRN (08:54)
[2017-12-09] MEDS: LORazepam 1 MG TAB PO PRN ×2 (10:54→20:28)
[2017-12-09] MEDS: NICOTINE POLACRILEX 2 MG GUM BUCCAL PRN (10:54)
--- NOTE | 2017-12-09 12:20 | P.PN ---
Progress Note - Text Progress Note Date: 12/09/17 Interval History: Patient is a 47-year-old male who was seen today who reports that he continues to have nightmares that wake him up at night and disrupt his sleep. Patient states he's had several flashbacks while on the unit. Patient also reports shoulder pain is not being controlled with the current medications , is requesting a sling so that he doesn't move the shoulder as much. Patient states he continues to fear that he will respond to getting upset with people in a physical manner. Patient describes an episode with another patient who made him angry and irritated and the patient walked out of the group as well as walked out of another group. Patient states he's feeling tired during the day and still depressed, his sleep remains poor he denied any current suicidal ideation. Patient states that he continues to have the long term mentality of responding in a physical fashion to anything that is irritating or upsetting to him and he fears that at some point on the outside he will react this way. Mental Status: Appearance/Attitude: Patient is appropriately dressed, makes good eye contact and is cooperative Behavior: Patient does not display any psychomotor agitation or retardation. Speech/Language: Patient's speech is spontaneous and of normal volume and rhythm and he is coherent. Thought Process: Patient is goal-directed there is no evidence of loose association or flight of ideas. Thought Content: Patient denies auditory or visual hallucinations and no delusions or paranoid ideation or elicited. Patient reports continuing to have nightmares that awaken him and make it difficult for him to return to sleep. Patient also reports having flashbacks at times on the inpatient unit. Patient continues to verbalize his concern about reacting in a physical manner when he is irritated or stressed as he did when he was in long term. Patient states that he has been able to not respond that way here on several occasions, talk to staff and left the group however continues to feel that this will be a problem for him on the outside when he is under more pressure. Patient states that his sleep is disrupted due to the nightmares and his appetite is fine. Patient also states that he had several panic attacks all he has been here. Suicidal/Homicidal Ideation: Patient denies any current suicidal or homicidal ideation. Sensorium/Cognition: He is alert and oriented to person, place, and time and his recent and remote memory are grossly intact. Mood/Affect: Patient's mood remains depressed, irritable and his affect is appropriate to his mood. Insight/Judgment: Patient's insight and judgment are fair Assessment: Patient continues to be concerned that when he is irritated or upset or someone does something he doesn't like that he will respond in a physical manner as he did when he was in long term, patient is frustrated that because he is begun to talk about this it hasn't gone away. He did deal with 2 episodes here on the inpatient unit of someone irritating him by walking out and speaking to staff patient states the nightmares persistent are bad and disrupt his sleep, he reports 2 episodes of having flashbacks on the unit but they are not as severe as they were in the past. He is no longer reporting suicidal ideation and states his depression is somewhat better. Patient has been attending groups and activities and attempting to discuss his difficulties. Patient also reports shoulder pain has not been relieved with his current medications and is requesting to have a sling. Plan: Patient will continue on Seroquel 100 mg twice a day and 300 mg at bedtime , will increase his Wellbutrin to 300 mg in the morning and will speak with the outside medical sales representative regarding possibly trying prazosin seen again to control his nightmares and adjusting his other antihypertensive medications. Patient and I discussed his concerns regarding the flashbacks, his first response being one of physical and he when irritated or stressed. Continue to encourage the patient to attend groups and activities. Patient states he is also considering going to [facility] on an inpatient basis due to his alcohol use. Patient continues to require hospitalization to further stabilize his mood.
[2017-12-09] MEDS: diphenhydrAMINE 25 MG CAP PO PRN (13:01)
[2017-12-09] MEDS: ACETAMINOPHEN TAB 325 MG TAB PO PRN (16:05)
[2017-12-09] MEDS: PRAZOSIN 1 MG CAP PO SCH (20:23)
[2017-12-10] MEDS: ACETAMINOPHEN TAB 325 MG TAB PO PRN (04:42)
[2017-12-10] MEDS: METHYL SALICYLATE/MENTHOL CREAM 5 OZ TOPICAL PRN (04:43)
[2017-12-10] MEDS: NICOTINE POLACRILEX 2 MG GUM BUCCAL PRN ×3 (04:43→15:27)
[2017-12-10] MEDS: LORazepam 1 MG TAB PO PRN ×3 (04:43→20:59)
[2017-12-10] MEDS: buPROPion SR 100 MG TABLET.ER PO SCH (08:44)
[2017-12-10] MEDS: LORATADINE 10 MG TAB PO SCH (08:45)
[2017-12-10] MEDS: GABAPENTIN 400 MG CAP PO SCH ×3 (08:47→20:55)
[2017-12-10] MEDS: QUEtiapine 100 MG TAB PO SCH ×3 (08:47→20:54)
[2017-12-10] MEDS: MAGNESIUM HYDROXIDE 2,400 MG/10 ML CUP PO PRN (08:54)
[2017-12-10] MEDS ORDERED: buPROPion SR 100 MG TABLET.ER PO ONE (09:07)
[2017-12-10] MEDS ORDERED: FLUTICASONE 50MCG/SPRAY NASAL 16GM EA NOSTRIL PRN (10:33)
[2017-12-10] MEDS ORDERED: predniSONE 20 MG TAB PO STA (10:34)
[2017-12-10] MEDS ORDERED: LACTULOSE 20 GM/30 ML CUP PO PRN (10:39)
--- NOTE | 2017-12-10 10:43 | P.PN ---
Subjective Progress Note Date: 12/10/17 Principal diagnosis: shoulder pain Patient is a 47-year-old male with a past medical history of high blood pressure, not currently taking medication, depression, and tobacco abuse who presented to the emergency department with complaints of suicidal ideation. He has been admitted to the mental health unit Patient seen and examined. He complains of chronic left shoulder pain that has been worsening. The naproxen and Tylenol are not helping. He has used Ultram in the past. He does not want anything opiate as he realizes he has a problem with alcohol addiction. He states that he fell out of bed last night and hurt his left knee. He states he chronically an open wound here and it is slightly swollen. The pain is a 1 out of 10. He is more worried about his history of skin infections. He also complains of sinusitis. He states Claritin helps clear her sinuses in the morning, act up again in the afternoon. We discussed adding in Flonase and letting him take the Claritin later in the day. He thinks this will be amenable. We also discussed a trial of 1 dose of prednisone to help with his shoulder pain which I believe is secondary to aggravated arthritis from his prior injury. He is agreeable to this. He states he has had a skin reaction to some type of injection steroid in the past. He also complains of constipation and states that the milk of magnesia has not been working. Objective - Vital Signs Vital signs: Vital Signs Temp 98.1 F 12/10/17 02:15 Pulse 102 H 12/10/17 02:15 Resp 18 12/10/17 02:15 BP 136/71 12/10/17 02:15 Pulse Ox 97 12/06/17 16:12 - Exam General: no distress, appears at stated age Derm: warm, dry, Left knee with quarter-sized area of abrasion. Not warm/red or boggy but is over a prior scar, Head: atraumatic, normocephalic, symmetric Eyes: EOMI, no lid lag, anicteric sclera Mouth: no lip lesion, mucus membranes moist Cardiovascular: S1S2 reg, no murmur, positive posterior tibial pulse bilateral, Lungs: CTA bilateral, no rhonchi, no rales , no accessory muscle use Ext: no gross muscle atrophy, no edema, no contractures, left knee with negative anterior and posterior drawer, negative valgus and varus maneuvers Neuro: CN II-XI grossly intact, no focal neuro deficits Psych: Alert, oriented, pressured speech with flat affect - Labs CBC & Chem 7: 12/05/17 11:04 12/05/17 11:04 Assessment and Plan Assessment: Left knee abrasion - Bacitracin ointment BID Acute on chronic left shoulder pain -1 dose of prednisone -As needed Ultram resume his previous dose of 100 mg 3 times daily -Continue with naproxen and Tylenol as needed -Sling has been ordered Constipation -Took milk of magnesia and prune juice today -If no relief today can use when necessary lactulose in the morning. Sinusitis -Claritin -Add Flonase Left knee cellulitis and pain with history of fall, resolved Weight loss, resolved now gaining weight Tobacco abuse -Cessation -Nicotine replacement Hypertension, not currently on medications -on Minipres Suicidal ideation -Your psych management. Thank you for allowing us to participate in the care of this patient. We will follow peripherally. Do not hesitate to contact us with questions. Someone can be reached from the [facility] hospitalist group at all hours of the day at [phone].
[2017-12-10] MEDS: diphenhydrAMINE 25 MG CAP PO PRN (12:02)
[2017-12-10] MEDS: BACITRACIN 500 UNIT/GM OINT 28.4 GM TUBE TOPICAL SCH ×2 (12:06→20:54)
[2017-12-10] MEDS: traMADol 50 MG TAB PO PRN ×2 (13:40→21:21)
--- NOTE | 2017-12-10 13:42 | P.PN ---
Progress Note - Text Progress Note Date: 12/10/17 Interval History: Patient is a 47-year-old male who was seen today and reports that he did not have as many nightmares last night in fact the only time he had them was early in the morning when he returned to sleep. Patient states that he is no longer having any suicidal ideation and states that he has not had any flashbacks for the last 2 days. Patient states when another patient was discussing being in [facility] in a group he was able to ask the patient to not continue discussing that and states that the interaction went well. Patient reports no side effects from his medications and states he has not been feeling dizzy or lightheaded. Patient continues to complain of pain in his left shoulder and was seen by the medical data entry clerk today. Mental Status: Appearance/Attitude: Patient is appropriately dressed, makes good eye contact and is cooperative Behavior: Patient does not exhibit any psychomotor agitation or retardation. Speech/Language: patient's speech is spontaneous and of normal volume and rhythm and he is coherent Thought Process: patient is goal-directed there is no evidence of loose association or flight of ideas. Thought Content: patient denies any auditory or visual hallucinations and no delusions or paranoid ideation were elicited. Patient reports that he had fewer nightmares last evening, he has not had any flashbacks for the last 2 days. Patient is not reporting feeling dizzy or lightheaded on the Minipress. Patient states that he is appetite remains good. Patient states that he is trying to interact with others without responding as though he was still in [facility]. Suicidal/Homicidal Ideation: patient denies any current suicidal or homicidal ideation. Sensorium/Cognition: patient is alert and oriented to person, place, and time and his recent and remote memory are grossly intact. Mood/Affect: patient's mood is less depressed, his affect is appropriate Insight/Judgment: patient's insight and judgment are fair Assessment: patient reports that the prazosin was beneficial in decreasing the number of nightmares that he had last night and he is not feeling dizzy or lightheaded on it and his blood pressure remains fairly well controlled. Patient was reporting complaints of increasing pain in his left shoulder and spoke with the medical data entry clerk who prescribed Ultram as well as gave him one dose of prednisone. Patient is also been ordered a sling. Patient states that he is not having any side effects from the Wellbutrin or Seroquel and reports that he has been trying to interact with other peers without responding as if he was still in [facility]. Patient states that he has not had any flashbacks for the last 2 days. Plan: patient will continue on Seroquel 100 mg twice a day and 3 mg at bedtime , Wellbutrin 300 mg in the morning and prazosin 1 mg at bedtime. Patient was also begun on Ultram when necessary today for his left shoulder pain. Patient continues on his other medications and is no longer receiving any other additional antihypertensive meds. Patient discussed that he has gotten an intake at [facility] for this and wishes to be discharged tomorrow. Patient and I discussed his discharge and follow-up plans at [facility] and will plan for that tomorrow.
[2017-12-10] MEDS: NAPROXEN 250 MG TAB PO PRN (15:15)
[2017-12-10] MEDS: PRAZOSIN 1 MG CAP PO SCH (20:55)
[2017-12-11] MEDS: ACETAMINOPHEN TAB 325 MG TAB PO PRN ×2 (02:52→09:03)
[2017-12-11] MEDS: NICOTINE POLACRILEX 2 MG GUM BUCCAL PRN ×2 (02:53→06:19)
[2017-12-11 02:57] VITALS: BP 139/74; PULSE 106; RESP 16; TEMP 97.5
[2017-12-11] MEDS: LORazepam 1 MG TAB PO PRN (06:19)
[2017-12-11] MEDS: traMADol 50 MG TAB PO PRN (06:19)
[2017-12-11] MEDS ORDERED: buPROPion XL 300 MG TAB.ER.24H PO SCH (09:00)
[2017-12-11] MEDS: QUEtiapine 100 MG TAB PO SCH (09:00)
[2017-12-11] MEDS: GABAPENTIN 400 MG CAP PO SCH (09:00)
[2017-12-11] MEDS ORDERED: LORATADINE 10 MG TAB PO PRN (09:00)
[2017-12-11] MEDS: BACITRACIN 500 UNIT/GM OINT 28.4 GM TUBE TOPICAL SCH (09:25)
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
== END 2017-12-11 11:54 | disposition home or self-care (01) | DRG 885 ==
LOC: EC 21:04 → 3MHU 23:15
PROVIDERS: ADMIT Psychiatry & Neurology Psychiatry; ATTEND Psychiatry & Neurology Psychiatry
DX: F33.1 Major depressive disorder, recurrent, moderate (principal); R45.851 Suicidal ideations; D35.00 Benign neoplasm of unspecified adrenal gland; F41.0 Panic disorder [episodic paroxysmal anxiety]; F43.10 Post-traumatic stress disorder, unspecified; E66.3 Overweight; F10.20 Alcohol dependence, uncomplicated; F12.90 Cannabis use, unspecified, uncomplicated; F14.90 Cocaine use, unspecified, uncomplicated; F17.200 Nicotine dependence, unspecified, uncomplicated; G89.29 Other chronic pain; I10 Essential (primary) hypertension; J30.2 Other seasonal allergic rhinitis; K59.00 Constipation, unspecified; M19.012 Primary osteoarthritis, left shoulder; S80.212A Abrasion, left knee, initial encounter; F51.5 Nightmare disorder; Z68.31 Body mass index [BMI] 31.0-31.9, adult; Z62.810 Personal history of physical and sexual abuse in childhood; Z91.5 Personal history of self-harm; W06.XXXA Fall from bed, initial encounter; Y92.239 Unspecified place in hospital as the place of occurrence of the external cause
CPT/HCPCS: 71046; 80053; 80061; 80306; 81003; 82075; 83036; 84443; 85025; 99285

== ENCOUNTER 2018-04-18 17:57 | Inpatient (IN) | payer MEDICAID, OTHER ==
--- NOTE | 2018-04-18 18:09 | ED ---
Psych HPI - General Stated Complaint: Mental Health Time Seen by Provider: 04/18/18 17:59 Source: patient, EMS, RN notes reviewed Mode of arrival: EMS Limitations: no limitations - History of Present Illness Initial Comments: This a 47-year-old male presents emergency Department chief complaint of depression, suicidal ideation. Patient states that he has from [place] states that he entered the program on Saturday for alcohol abuse. Patient states that he has no withdrawal symptoms at this time. Patient states his last drink was at Saturday at 5 AM. Patient denies any physical complaints going chest pain, shortness breath, headache, dizziness, nausea, vomiting, diarrhea constipation. Patient states that is not homicidal. Information is limited as he does not want to talk about anything. - Related Data Home Medications Medication Instructions Recorded Confirmed Metoprolol Tartrate [Lopressor] 25 mg PO DAILY PRN 04/18/18 04/18/18 Previous Rx's Medication Instructions Recorded Gabapentin 800 mg PO TID #84 tab 12/11/17 Loratadine [Claritin] 10 mg PO DAILY PRN #28 tab 12/11/17 Prazosin [Minipress] 1 mg PO HS #14 cap 12/11/17 QUEtiapine [SEROquel] 100 mg PO DIRECTED #70 tab 12/11/17 buPROPion XL [Wellbutrin XL] 300 mg PO DAILY #14 tab.er.24h 12/11/17 Allergies Allergy/AdvReac Type Severity Reaction Status Date / Time No Known Allergies Allergy Verified 04/18/18 18:36 Review of Systems ROS Statement: Those systems with pertinent positive or pertinent negative responses have been documented in the HPI. ROS Other: All systems not noted in ROS Statement are negative. 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 History of Any Multi-Drug Resistant Organisms: None Reported Past Surgical History: No Surgical Hx Reported Past Anesthesia/Blood Transfusion Reactions: No Reported Reaction Past Psychological History: Depression, PTSD Smoking Status: Current every day smoker Past Alcohol Use History: Occasional Past Drug Use History: Heroin, Marijuana - Past Family History Mother Family Medical History: No Reported History Father Family Medical History: Diabetes Mellitus, Myocardial Infarction (IA) General Exam General appearance: alert, in no apparent distress Head exam: Present: atraumatic, normocephalic, normal inspection Eye exam: Present: normal appearance, PERRL, EOMI. Absent: scleral icterus, conjunctival injection, periorbital swelling ENT exam: Present: normal exam, normal oropharynx, mucous membranes moist Neck exam: Present: normal inspection. Absent: tenderness, meningismus, lymphadenopathy Respiratory exam: Present: normal lung sounds bilaterally. Absent: respiratory distress, wheezes, rales, rhonchi, stridor Cardiovascular Exam: Present: regular rate, normal rhythm, normal heart sounds. Absent: systolic murmur, diastolic murmur, rubs, gallop, clicks Neurological exam: Present: alert, oriented X3, CN II-XII intact Psychiatric exam: Present: depressed, flat affect Skin exam: Present: warm, dry, intact, normal color. Absent: rash Course Vital Signs 04/18/18 18:06 Temperature 98.7 F Pulse Rate 94 Respiratory 18 Rate Blood Pressure 167/98 O2 Sat by Pulse 97 Oximetry Medical Decision Making - Lab Data Lab Results 04/18/18 Range/Units 18:01 Urine Opiates Screen Not Detected (NotDetected) Ur Oxycodone Screen Not Detected (NotDetected) Urine Methadone Screen Not Detected (NotDetected) Ur Propoxyphene Screen Not Detected (NotDetected) Ur Barbiturates Screen Not Detected (NotDetected) U Tricyclic Antidepress Not Detected (NotDetected) Ur Phencyclidine Scrn Not Detected (NotDetected) Ur Amphetamines Screen Not Detected (NotDetected) U Methamphetamines Scrn Not Detected (NotDetected) U Benzodiazepines Scrn Not Detected (NotDetected) Urine Cocaine Screen Detected H (NotDetected) U Marijuana (THC) Screen Not Detected (NotDetected) Disposition Clinical Impression: Alcohol use disorder, Suicidal ideation, Depression, Post traumatic stress disorder Disposition: ADMITTED IP TO THIS [facility] Condition: Stable Referrals: [facility] [Primary Care Provider] - 1-2 days
[2018-04-18 18:41] LABS: Amphetamine Screen,Urine Not Detected (NotDetected); Barbiturate Screen,Urine Not Detected (NotDetected); Benzodiazepines Screen,Urine Not Detected (NotDetected); Cocaine Screen,Urine Detected (NotDetected); Methadone Screen, Urine Not Detected (NotDetected); Opiate Screen,Urine Not Detected (NotDetected); Oxycodone Screen, Urine Not Detected (NotDetected); Phencyclidine Screen,Urine Not Detected (NotDetected); Tricyclic Antidepressant,Urine Not Detected (NotDetected); Urn Cannabinoid Scrn Not Detected (NotDetected)
[2018-04-18] MEDS ORDERED: MAGNESIUM HYDROXIDE 2,400 MG/10 ML CUP PO PRN (20:56)
[2018-04-18] MEDS ORDERED: ACETAMINOPHEN TAB 325 MG TAB PO PRN (20:56)
[2018-04-18] MEDS ORDERED: MAG HYDROX/AL HYDROX/SIMETH 30 ML CUP PO PRN (20:56)
[2018-04-18] MEDS ORDERED: METOPROLOL TARTRATE 25 MG TAB PO PRN (20:59)
[2018-04-18] MEDS ORDERED: hydrOXYzine PAMOATE 25 MG CAP PO PRN (21:09)
[2018-04-18] MEDS: QUEtiapine 100 MG TAB PO SCH (21:49)
[2018-04-18] MEDS: GABAPENTIN 400 MG CAP PO SCH (21:49)
[2018-04-18 22:39] VITALS: BMI 29.1
--- NOTE | 2018-04-18 23:09 | P.MDCNMH ---
History of Present Illness H&P Date: 04/18/18 Chief Complaint: Medical management 47-year-old male with history of hypertension was brought to the hospital from [facility] due to overwhelming depression and suicidal ideation. Patient reports that he was at [facility] to quit alcohol his last drink was on Saturday morning. Patient otherwise denying any chest pain or trouble breathing he is denying any headache changes in his vision or hearing denies any focal neurologic deficits denies any abdominal pain nausea or vomiting denies any changes in urinary or bowel habits she denies any GI bleeding Review of Systems Pertinent positives as noted in HPI. 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 History of Any Multi-Drug Resistant Organisms: None Reported Past Surgical History: No Surgical Hx Reported Past Anesthesia/Blood Transfusion Reactions: No Reported Reaction Smoking Status: Current every day smoker - Past Family History Mother Family Medical History: No Reported History Father Family Medical History: Diabetes Mellitus, Myocardial Infarction ([place]) Medications and Allergies Home Medications Medication Instructions Recorded Confirmed Type Gabapentin 800 mg PO TID #84 tab 12/11/17 04/18/18 Rx Loratadine [Claritin] 10 mg PO DAILY PRN #28 tab 12/11/17 04/18/18 Rx Prazosin [Minipress] 1 mg PO HS #14 cap 12/11/17 04/18/18 Rx QUEtiapine [SEROquel] 100 mg PO DIRECTED #70 tab 12/11/17 04/18/18 Rx buPROPion XL [Wellbutrin XL] 300 mg PO DAILY #14 tab.er.24h 12/11/17 04/18/18 Rx Metoprolol Tartrate [Lopressor] 25 mg PO DAILY PRN 04/18/18 04/18/18 History Allergies Allergy/AdvReac Type Severity Reaction Status Date / Time No Known Allergies Allergy Verified 04/18/18 20:54 Physical Exam Vitals: Vital Signs Temp Pulse Pulse Resp BP BP Pulse Ox 04/18/18 22:10 99.8 F H 70 15 147/96 04/18/18 20:45 73 16 163/95 96 04/18/18 18:06 98.7 F 94 18 167/98 97 Intake and Output 04/18/18 04/18/18 04/19/18 14:59 22:59 06:59 Other: Weight 100.2 kg Constitutional: No acute distress, patient is avoiding eye contact, patient is not conversant he is only nodding his head indicating yes and no Eyes: Anicteric sclerae, moist conjunctiva, no lid-lag Pupils equal round reactive to light ENMT: NC/AT Oropharynx clear, no erythema, or exudates Neck: Supple, FROM, no masses, or JVD No carotid bruits No thyromegaly Lungs: Clear to auscultation Clear to percussion Normal respiratory effort, no accessory muscle use Cardiovascular: Heart regular in rate and rhythm, No murmurs, gallops, or rubs No peripheral edema Abdominal: Soft Nontender, no guarding, rebound or rigidity Abdomen moving with respiration Normoactive bowel sounds No hepatomegaly, No splenomegaly No palpable mass No abdominal wall hernia noted Skin: Normal temperature, tone, texture, turgor No induration No subcutaneous nodules No rash, lesions No ulcers Extremities: No digital cyanosis No clubbing Pedal pulses intact and symmetrical Radial pulses intact and symmetrical No calf tenderness Psychiatric: Alert and oriented to person, place and time Flat affect Poor judgment Neuro Muscles Strength 5/5 in all 4 extremities Sensation to light touch grossly present throughout No focal sensory deficits Lymphatics: no palpable cervical or supraclavicular , or inguinal lymph nodes Cranial Nerve Examination - Cranial Nerves Cranial Nerve II- Optic: Intact Cranial Nerve III- Oculomotor: Intact Cranial Nerve IV- Trochlear: Intact Cranial Nerve V- Trigeminal: Intact Cranial Nerve - Abducens: Intact Cranial Nerve VII- Facial: Intact Cranial Nerve VIII- Auditory: Intact Cranial Nerve IX- Glossopharyngeal: Intact Cranial Nerve X- Vagus: Intact Cranial Nerve XI- Accessory: Intact Cranial Nerve XII- Hypoglossal: Intact Results Labs: Abnormal Lab Results - Last 24 Hours (Table) 04/18/18 Range/Units 18:01 Urine Cocaine Screen Detected H (NotDetected) Assessment and Plan Assessment: 47-year-old male with history of hypertension brought him to the hospital due to suicidal ideation and depression medicine consulted for medical management Plan: Depression and suicidal ideation Suicide precautions Management per psych Alcohol dependence Monitor for withdrawal symptoms Benzos per CIWA Timing Hypertension currently stable Continue metoprolol Patient is ambulatory low risk for DVT Follow-up labs Thank you for allowing us to participate in the care of this patient. We will follow peripherally. Do not hesitate to contact us with questions. Someone can be reached from the [facility] hospitalist group at all hours of the day at [phone].
[2018-04-19] MEDS: NICOTINE 21MG/24HR PATCH TRANSDERM SCH ×2 (09:36→09:39)
[2018-04-19] MEDS: buPROPion XL 300 MG TAB.ER.24H PO SCH (09:36)
[2018-04-19] MEDS: QUEtiapine 100 MG TAB PO SCH ×3 (09:36→21:17)
[2018-04-19] MEDS: TAMSULOSIN 0.4 MG CAP.ER.24H PO SCH (09:36)
[2018-04-19] MEDS: GABAPENTIN 400 MG CAP PO SCH ×3 (09:36→21:18)
[2018-04-19 09:40] LABS: Basophils # (A) 0.1 k/uL (0-0.2); Basophils % (A) 1 %; Eosinophils # (A) 0.3 k/uL (0-0.7); Eosinophils % (A) 4 %; HCT 48.5 % (39.0-53.0); HGB 15.7 gm/dL (13.0-17.5); Lymphocytes # (A) 1.5 k/uL (1.0-4.8); Lymphocytes % (A) 17 %; MCH 29.4 pg (25.0-35.0); MCHC 32.4 g/dL (31.0-37.0); MCV 90.9 fL (80.0-100.0); Mean Platelet Volume 6.2; Monocytes # (A) 0.5 k/uL (0-1.0); Monocytes % (A) 5 %; Neutrophils # (A) 6.2 k/uL (1.3-7.7); Neutrophils % (A) 71 %; Platelet Count 295 k/uL (150-450); RBC 5.34 m/uL (4.30-5.90); RDW 13.7 % (11.5-15.5); WBC 8.7 k/uL (3.8-10.6)
[2018-04-19 09:57] LABS: ALT 32 U/L (21-72); AST 23 U/L (17-59); Albumin 3.4 g/dL (3.5-5.0); Alkaline Phosphatase 59 U/L (38-126); Anion Gap 6 mmol/L; Blood Urea Nitrogen 12 mg/dL (9-20); Calcium 8.8 mg/dL (8.4-10.2); Carbon Dioxide 25 mmol/L (22-30); Chloride 109 mmol/L (98-107); Cholesterol 193 mg/dL (<200); Glucose 88 mg/dL (74-99); HDL Cholesterol 30 mg/dL (40-60); LDL Cholesterol,Calculated 127 mg/dL (0-99); Potassium 4.7 mmol/L (3.5-5.1); Sodium 140 mmol/L (137-145); Total Bilirubin 0.4 mg/dL (0.2-1.3); Total Protein 5.8 g/dL (6.3-8.2); Triglycerides 179 mg/dL (<150)
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
[2018-04-19 20:19] LABS: Hemoglobin A1C 5.3 % (4.0-6.0)
[2018-04-19] MEDS: PRAZOSIN 1 MG CAP PO SCH (21:17)
[2018-04-19] MEDS: ALBUTEROL INHALER 60 PUFF/8 GM INHALER INHALATION PRN (21:19)
[2018-04-20] MEDS: buPROPion XL 300 MG TAB.ER.24H PO SCH (08:24)
[2018-04-20] MEDS: GABAPENTIN 400 MG CAP PO SCH ×3 (08:24→21:07)
[2018-04-20] MEDS: NICOTINE 21MG/24HR PATCH TRANSDERM SCH (08:25)
[2018-04-20] MEDS: QUEtiapine 100 MG TAB PO SCH ×2 (08:25→21:08)
[2018-04-20] MEDS: TAMSULOSIN 0.4 MG CAP.ER.24H PO SCH (08:25)
--- NOTE | 2018-04-20 13:11 | P.PN ---
Progress Note - Text Interval history: The patient is found in his room he follows me to an interview room. He continues to state that he is hopeless. He states nothing matters and he should kill himself. He reports eating and he has been sleeping at night. I do not believe he has attended any groups. We reviewed his psychiatric medications. He was agreeable to a trial of Abilify in place of Seroquel. He briefly discussed the of his brother. He briefly discussed his recent work history. Mental status exam: The patient is alert he is dressed in hospital attire. Hygiene and grooming are adequate. He makes no eye contact he looks down the entire session. He describes a depressed and hopeless mood with ongoing suicidal ideation. He is endorsing no thoughts of harming others is endorsing no auditory or visual hallucinations. There is no observed evidence of psychosis. He does not present with any hypomanic or manic symptoms. Thought process is linear. He demonstrates a dysphoric affect but is not tearful. Insight and judgment are impaired. He demonstrates no verbal or physical aggressiveness he demonstrates no abnormal involuntary movements. Plan: The patient will continue on the Wellbutrin XL and prays ascend. We will discontinue the daytime dosing of Seroquel and continue the evening dose of that medication. We will initiate Abilify 5 mg daily as an augmentation strategy for his refractory depression and to see if this will help reduce symptoms of PTSD. The patient requires continued psychiatric hospitalization. Vital signs reviewed.
[2018-04-20] MEDS: PRAZOSIN 1 MG CAP PO SCH (21:07)
--- NOTE | 2018-04-21 09:59 | P.PN ---
Progress Note - Text Interval history: The patient is found in his room after 2 attempts he was reluctant to follow me to an interview room. He continues to state "nothing matters". He indicates that he stayed in his room most of the day yesterday except for meals. He has been compliant with medication. We discussed the change in medication where we added Abilify and we'll plan to taper off of Seroquel. I also discussed the option of titrating Wellbutrin XL further. He has no questions or concerns regarding medication treatment. Mental status exam: The patient is a male appearing his stated age. He has a disheveled appearance he is dressed in hospital attire. He makes no eye contact he looks out the floor for the duration of the session. He initiates no speech. He provides very brief quiet answers. He continues to state "nothing matters". He indicates ongoing suicidal ideation. There is no report or evidence of psychosis he demonstrates no verbal or physical aggressiveness. His affect is flat. He remains oriented to person place and date. Plan: The patient will continue on his current medications I will titrate the Wellbutrin XL to 450 mg daily. He confirms again that he has no history of seizures. We will plan to taper down the Seroquel further during the course of his stay. We will monitor him for safety he is encouraged to participate in the milieu.
[2018-04-21] MEDS: GABAPENTIN 400 MG CAP PO SCH ×3 (10:01→22:31)
[2018-04-21] MEDS: ARIPiprazole 5 MG TAB PO SCH (10:01)
[2018-04-21] MEDS: buPROPion XL 300 MG TAB.ER.24H PO SCH (10:04)
[2018-04-21] MEDS: NICOTINE 21MG/24HR PATCH TRANSDERM SCH (10:08)
[2018-04-21] MEDS: QUEtiapine 100 MG TAB PO SCH (22:31)
[2018-04-21] MEDS: PRAZOSIN 1 MG CAP PO SCH (22:32)
[2018-04-22] MEDS: LORATADINE 10 MG TAB PO PRN (00:17)
[2018-04-22] MEDS ORDERED: buPROPion XL 150 MG TAB.ER.24H PO SCH (09:00)
[2018-04-22] MEDS: ARIPiprazole 5 MG TAB PO SCH (09:07)
[2018-04-22] MEDS: GABAPENTIN 400 MG CAP PO SCH ×3 (09:08→21:52)
[2018-04-22] MEDS: NICOTINE 21MG/24HR PATCH TRANSDERM SCH (09:09)
--- NOTE | 2018-04-22 09:35 | P.PN ---
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 He reports he didn't sleep well last night. He thinks the prazosin is making him feel dizzy. He would like to have that medication discontinued. We reviewed his other psychotropic medication. He states he's done better with the sustained release version of Wellbutrin in the past versus the XL form. He notifies me that he did sign a form revoking his voluntary status and he expects to be discharged within 72 hours. Mental status exam: The patient is alert he is dressed in his own clothing. He is wearing his eyeglasses. Eye contact is intermittent. He participates morning conversation. He reports having ongoing depressed mood. He endorses chronic suicidal ideation. He does spontaneously reports some future oriented thinking stating that he wants to go to the unemployment office and that he needs to get a hold of his belongings at [place]. 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 He is reporting no auditory or visual hallucinations or specific delusions. There is no observed evidence of psychosis. Affect remains bland. Insight and judgment limited. Plan: The patient will continue on the Abilify. We will plan to reduce the Seroquel. We have switched the Wellbutrin XL to Wellbutrin SR. We have discontinued the prazosin. Metoprolol was scheduled 25 mg daily. We will monitor him for safety and encourage participation in the milieu. We discussed that we will need to assess his progress over the next 72 hours to determine if he is able to be released safely.
[2018-04-22] MEDS: METOPROLOL TARTRATE 25 MG TAB PO SCH (10:45)
[2018-04-22] MEDS: QUEtiapine 100 MG TAB PO SCH (21:52)
[2018-04-23] MEDS: GABAPENTIN 400 MG CAP PO SCH ×3 (09:08→21:39)
[2018-04-23] MEDS: buPROPion SR 150 MG TABLET.ER PO SCH ×2 (09:08→16:00)
[2018-04-23] MEDS: NICOTINE 21MG/24HR PATCH TRANSDERM SCH (09:08)
[2018-04-23] MEDS: METOPROLOL TARTRATE 25 MG TAB PO SCH (09:08)
[2018-04-23] MEDS: ARIPiprazole 5 MG TAB PO SCH (09:08)
[2018-04-23] MEDS ORDERED: hydrOXYzine PAMOATE 25 MG CAP PO PRN (11:06)
--- NOTE | 2018-04-23 11:10 | P.PN ---
Progress Note - Text The patient is found in the hallway he follows me to an interview room. He reports that his mood is improving. He demonstrates more future oriented thinking. He states when he came in he felt he was at the bottom but now he thinks "the bottom could be deeper than this" he discusses the need to arrange his outpatient follow-up, arrange employment and other services. We discussed his medications in detail. His questions were answered. He has been attending groups today. Mental status exam: The patient is alert he seated calmly he is dressed in his own clothing. He appropriately interacts during the session. Eye contact is much improved speech is fluent spontaneous nonpressured. He states that his mood is improving he endorses no acute suicidal or homicidal ideation intent or plan. He is reporting no auditory or visual hallucinations or specific delusions. He demonstrates no verbal or physical aggressiveness. He demonstrates no abnormal involuntary movements. Insight and judgment improving. Plan: The patient will continue his current medications. We will increase the Vistaril to 50 mg up to 3 times daily as needed. We will monitor him for safety. If he demonstrates sufficient improvement/stability we will consider discharge in the next 1-2 days.
[2018-04-23] MEDS: LORATADINE 10 MG TAB PO PRN (12:57)
[2018-04-23 15:57] LABS: Appearance,Urine Clear (Clear); Bilirubin,Urine Negative (Negative); Blood,Urine Negative (Negative); Color,Urine Light Yellow; Glucose,Urine (UA) Negative (Negative); Ketones,Urine Negative (Negative); Leukocyte Esterase,Urine Negative (Negative); Nitrite,Urine Negative (Negative); PH, Urine 6.5 (5.0-8.0); Protein,Urine Negative (Negative); Specific Gravity,Urine 1.011 (1.001-1.035); Urobilinogen,Urine <2.0 mg/dL (<2.0)
[2018-04-23] MEDS: QUEtiapine 100 MG TAB PO SCH (21:39)
[2018-04-24] MEDS ORDERED: ACETAMINOPHEN TAB 325 MG TAB ONE (04:03)
[2018-04-24 07:04] VITALS: TEMP 98.1
[2018-04-24] MEDS: NICOTINE 21MG/24HR PATCH TRANSDERM SCH (08:47)
[2018-04-24] MEDS: buPROPion SR 150 MG TABLET.ER PO SCH ×2 (08:49)
[2018-04-24] MEDS: ARIPiprazole 5 MG TAB PO SCH (08:49)
[2018-04-24] MEDS: LORATADINE 10 MG TAB PO PRN (08:49)
[2018-04-24] MEDS: GABAPENTIN 400 MG CAP PO SCH (08:50)
[2018-04-24] MEDS: METOPROLOL TARTRATE 25 MG TAB PO SCH ×2 (08:50→10:47)
[2018-04-24 08:54] VITALS: RESP 18
[2018-04-24] MEDS: ALBUTEROL INHALER 60 PUFF/8 GM INHALER INHALATION PRN (09:05)
--- NOTE | 2018-04-24 09:30 | P.DS ---
Providers Date of admission: 04/18/18 20:22 Expected date of discharge: 04/24/18 Attending physician: Akhil Gomez Consults: 04/18/18 20:56 Consult Physician Routine Consulting Provider: Petra Emmanuel Consult Reason/Comments: H&P for mental health admission Do you want consulting provider notified?: Already Contacted Primary care physician: [facility] - Discharge Diagnosis(es) (1) Major depressive disorder, recurrent Current Visit: Yes Status: Acute Priority: High (2) Post-traumatic stress disorder, chronic Current Visit: Yes Status: Acute Priority: High (3) Alcohol use disorder Current Visit: Yes Status: Acute Priority: High (4) Cocaine use disorder Current Visit: Yes Status: Acute Priority: High Hospital Course: Brief summary of admission note: This patient is a 47-year-old single male who was admitted to the mental health unit through the emergency room for acute suicidal ideation. The patient was transferred to us from [facility] via EMS as he reported acute suicidal ideation. He had been recently admitted to [facility] but felt overwhelmed by environmental stressors. He does have a chronic history of posttraumatic stress disorder and he felt those symptoms were being triggered at that facility. He reported feeling hopeless and reported there was nothing left to live for. His appetite was poor energy was poor he endorsed episodes of tearfulness. He presented to [facility] for alcohol use disorder as well as cocaine use disorder. He reported excessively using alcohol prior to that admission. For full details please refer to my psychiatric evaluation dated 04/19/2018. Summary of hospital course: The patient was admitted to the mental health unit he did sign in voluntarily. We reviewed his presenting symptoms and treatment options. Initially he was minimally cooperative with the interview process. As the hospitalization progressed he became more cooperative. At this point he is fully interactive in the session and has been attending groups. We addressed his psychotropic medications. He was continued on Wellbutrin SR he was continued on Seroquel at bedtime. We decided to begin a transition to Abilify from Seroquel. Vistaril has been used for anxiety. The patient's has been demonstrating future oriented thinking. He states he needs to go to the Social Security office he needs to go to the unemployment office and plans to go to [employer]. He states he is scheduled to be at [facility] on Saturday as he is hoping to complete that program. He demonstrated no verbal or physical aggressiveness no use of restraint was required. During the hospitalization he did sign a notice rescinding his voluntary status. Mental status exam: The patient is alert he is cooperative. He is dressed in his own clothing. He is wearing his eyeglasses. Hygiene and grooming are good. He reports his mood is improved he no longer is feeling hopeless. He denies having any acute suicidal ideation intent or plan. He reports no homicidal ideation intent or plan. He demonstrates future oriented thinking and spent several minutes discussing his plans for the next several days. He reports no auditory or visual hallucinations or any specific delusions there is no observed evidence of psychosis. Thought process is linear he demonstrates no tangential thinking loose associations or flight of ideas. He does not appear hypomanic or manic. He demonstrates no verbal or physical aggressiveness. He demonstrates no abnormal involuntary movements. Insight and judgment have improved. He remains oriented to person place and date. Impressions 1. Major depressive disorder recurrent severe without psychosis, posttraumatic stress disorder chronic, alcohol use disorder, cocaine use disorder, rule out marijuana use disorder 2. Significant cluster B traits including borderline and antisocial 3. Hypertension Plan: The patient will be discharged from the mental health unit today. He plans on residing at [facility] but has alternatives for placement if that is not available. He will continue on Wellbutrin SR 300 mg in the morning 150 mg in the afternoon, Vistaril 50 mg up to 3 times daily as needed for anxiety, Seroquel 300 mg at bedtime, Abilify 5 mg daily. Our intention is to have him finish cross tapering off of Seroquel and onto Abilify. At this time he requires both antipsychotics and this will be addressed further in the outpatient setting. At this time the patient poses no imminent safety risk he is appropriate for transition to outpatient care including treatment for chemical dependency. He states he plans on attempting residential treatment for chemical dependency again on Saturday. Social work will confirm his outpatient follow-up plans. He is instructed to abstain from any use of alcohol marijuana or any other illicit drug. We discussed the use of these substances will elevate his safety risk. He is instructed to return to the hospital with any acute safety concerns. Patient Condition at Discharge: Stable Plan - Discharge Summary Discharge Rx Participant: No New Discharge Prescriptions: New Acetaminophen Tab [Tylenol] 650 mg PO Q4HR PRN tab PRN Reason: Mild Pain/Discomfort ARIPiprazole [Abilify] 5 mg PO DAILY #30 tab buPROPion SR [Wellbutrin SR] 300 mg PO DAILY #60 tablet.er buPROPion SR [Wellbutrin SR] 150 mg PO DAILY #30 tablet.er hydrOXYzine HCL [Atarax] 50 mg PO TID PRN #45 tab PRN Reason: Anxiety Nicotine 21Mg/24Hr Patch [Habitrol] 1 patch TRANSDERM DAILY #10 patch QUEtiapine FUMARATE [SEROquel] 300 mg PO HS #30 tab Continue Loratadine [Claritin] 10 mg PO DAILY PRN #28 tab PRN Reason: Allergy Symptoms Gabapentin 800 mg PO TID #45 tab Metoprolol Tartrate [Lopressor] 25 mg PO DAILY PRN #30 tab PRN Reason: Blood Pressure - High Discontinued buPROPion XL [Wellbutrin XL] 300 mg PO DAILY #14 tab.er.24h Prazosin [Minipress] 1 mg PO HS #14 cap QUEtiapine [SEROquel] 100 mg PO DIRECTED #70 tab Discharge Medication List Loratadine [Claritin] 10 mg PO DAILY PRN #28 tab 12/11/17 [Rx] ARIPiprazole [Abilify] 5 mg PO DAILY #30 tab 04/24/18 [Rx] Acetaminophen Tab [Tylenol] 650 mg PO Q4HR PRN tab 04/24/18 [Rx] Gabapentin 800 mg PO TID #45 tab 04/24/18 [Rx] Metoprolol Tartrate [Lopressor] 25 mg PO DAILY PRN #30 tab 04/24/18 [Rx] Nicotine 21Mg/24Hr Patch [Habitrol] 1 patch TRANSDERM DAILY #10 patch 04/24/18 [ Rx] QUEtiapine FUMARATE [SEROquel] 300 mg PO HS #30 tab 04/24/18 [Rx] buPROPion SR [Wellbutrin SR] 150 mg PO DAILY #30 tablet.er 04/24/18 [Rx] buPROPion SR [Wellbutrin SR] 300 mg PO DAILY #60 tablet.er 04/24/18 [Rx] hydrOXYzine HCL [Atarax] 50 mg PO TID PRN #45 tab 04/24/18 [Rx] Follow up Appointment(s)/Referral(s): [facility] [Primary Care Provider] - 1-2 days
[2018-04-24 10:49] VITALS: BP 141/83; PULSE 87
== END 2018-04-24 12:09 | disposition home or self-care (01) | DRG 885 ==
LOC: EC 17:57 → 3MHU 20:22
PROVIDERS: ADMIT Psychiatry & Neurology Psychiatry; ATTEND Psychiatry & Neurology Psychiatry
DX: F33.2 Major depressive disorder, recurrent severe without psychotic features (principal); R45.851 Suicidal ideations; G62.9 Polyneuropathy, unspecified; F10.10 Alcohol abuse, uncomplicated; F11.90 Opioid use, unspecified, uncomplicated; F14.90 Cocaine use, unspecified, uncomplicated; B43.9 Chromomycosis, unspecified; F15.90 Other stimulant use, unspecified, uncomplicated; F17.200 Nicotine dependence, unspecified, uncomplicated; F43.12 Post-traumatic stress disorder, chronic; F60.3 Borderline personality disorder; I10 Essential (primary) hypertension; E27.9 Disorder of adrenal gland, unspecified; M19.90 Unspecified osteoarthritis, unspecified site; Z72.811 Adult antisocial behavior; Z62.810 Personal history of physical and sexual abuse in childhood; Z79.899 Other long term (current) drug therapy; Z82.49 Family history of ischemic heart disease and other diseases of the circulatory system; Z83.3 Family history of diabetes mellitus
CPT/HCPCS: 80053; 80061; 80306; 81003; 82075; 83036; 84439; 84443; 85025; 94640; 99285

== ENCOUNTER 2018-07-22 14:11 | Emergency (ER) | payer OTHER ==
[2018-07-22 14:26] VITALS: PULSE 95; RESP 18
--- NOTE | 2018-07-22 15:12 | ED ---
Psych HPI - General Chief Complaint: Psychiatric Symptoms Stated Complaint: Mental health Time Seen by Provider: 07/22/18 14:40 Source: patient, RN notes reviewed, old records reviewed Mode of arrival: ambulatory - History of Present Illness Initial Comments: This is a 47-year-old male the ER for evaluation. Patient does from [facility] for evaluation by psychiatry, history of psychiatric disease. Patient coming in for psychiatric evaluation and treatment patient positive suicidal, denies drugs or alcohol MD Complaint: suicidal ideation, feels depressed -: unknown Associated Psychiatric Symptoms: depression, suicidal ideation History of same: Yes Quality: constant Improves With: none, medication Worsens With: none Associated Symptoms: denies other symptoms Treatments Prior to Arrival: none If Self Harm: admits thoughts of self harm - Related Data Home Medications Medication Instructions Recorded Confirmed ARIPiprazole [Abilify] 10 mg PO DAILY 07/22/18 07/22/18 Albuterol Inhaler [Ventolin Hfa 2 puff INHALATION RT-Q4H PRN 07/22/18 07/22/18 Inhaler] Tamsulosin HCl [Flomax] 0.4 mg PO DAILY 07/22/18 07/22/18 buPROPion SR [Wellbutrin SR] 150 mg PO HS 07/22/18 07/22/18 hydrOXYzine PAMOATE [Vistaril] 50 mg PO TID 07/22/18 07/22/18 Previous Rx's Medication Instructions Recorded Loratadine [Claritin] 10 mg PO DAILY PRN #28 tab 12/11/17 Gabapentin 800 mg PO TID #45 tab 04/24/18 Metoprolol Tartrate [Lopressor] 25 mg PO DAILY PRN #30 tab 04/24/18 QUEtiapine FUMARATE [SEROquel] 300 mg PO HS #30 tab 04/24/18 buPROPion SR [Wellbutrin SR] 300 mg PO DAILY #60 tablet.er 04/24/18 Allergies Allergy/AdvReac Type Severity Reaction Status Date / Time No Known Allergies Allergy Verified 07/22/18 15:15 Review of Systems ROS Statement: Those systems with pertinent positive or pertinent negative responses have been documented in the HPI. ROS Other: All systems not noted in ROS Statement are negative. 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 History of Any Multi-Drug Resistant Organisms: None Reported Past Surgical History: No Surgical Hx Reported Past Anesthesia/Blood Transfusion Reactions: No Reported Reaction Past Psychological History: Depression, PTSD Smoking Status: Current every day smoker Past Alcohol Use History: Abuse, Daily Past Drug Use History: Marijuana - Past Family History Mother Family Medical History: No Reported History Father Family Medical History: Diabetes Mellitus, Myocardial Infarction (MA) General Exam Limitations: no limitations General appearance: alert, in no apparent distress Head exam: Present: atraumatic, normocephalic, normal inspection Eye exam: Present: normal appearance, PERRL, EOMI. Absent: scleral icterus, conjunctival injection, periorbital swelling ENT exam: Present: normal exam, mucous membranes moist Neck exam: Present: normal inspection. Absent: tenderness, meningismus, lymphadenopathy Respiratory exam: Present: normal lung sounds bilaterally. Absent: respiratory distress, wheezes, rales, rhonchi, stridor Cardiovascular Exam: Present: regular rate, normal rhythm, normal heart sounds. Absent: systolic murmur, diastolic murmur, rubs, gallop, clicks GI/Abdominal exam: Present: soft, normal bowel sounds. Absent: distended, tenderness, guarding, rebound, rigid Extremities exam: Present: normal inspection, full ROM, normal capillary refill. Absent: tenderness, pedal edema, joint swelling, calf tenderness Back exam: Present: normal inspection Neurological exam: Present: alert, oriented X3, CN II-XII intact Psychiatric exam: Present: normal affect, normal mood Skin exam: Present: warm, dry, intact, normal color. Absent: rash Course Vital Signs 07/22/18 07/22/18 14:23 17:21 Temperature 98.4 F 98.9 F Pulse Rate 95 95 Respiratory 18 18 Rate Blood Pressure 163/89 172/94 O2 Sat by Pulse 97 97 Oximetry - Reevaluation(s) Reevaluation #1: 07/22/18 15:42 Medical clear for psychiatric evaluation Medical Decision Making - Medical Decision Making 47 male the ER for evaluation of psychiatric illness, patient seen evaluated with psychiatry, medically clear for discharge home, patient is not homicidal or suicidal does have safe place to go - Lab Data Lab Results 07/22/18 Range/Units 16:19 Urine Opiates Screen Not Detected (NotDetected) Ur Oxycodone Screen Not Detected (NotDetected) Urine Methadone Screen Not Detected (NotDetected) Ur Propoxyphene Screen Not Detected (NotDetected) Ur Barbiturates Screen Not Detected (NotDetected) U Tricyclic Antidepress Not Detected (NotDetected) Ur Phencyclidine Scrn Not Detected (NotDetected) Ur Amphetamines Screen Not Detected (NotDetected) U Methamphetamines Scrn Not Detected (NotDetected) U Benzodiazepines Scrn Not Detected (NotDetected) Urine Cocaine Screen Detected H (NotDetected) U Marijuana (THC) Screen Not Detected (NotDetected) Disposition Clinical Impression: Depression Disposition: HOME SELF-CARE Condition: Good Instructions: Depression (ED) Is patient prescribed a controlled substance at d/c from ED?: No Referrals: [facility] [Primary Care Provider] - 1-2 days
[2018-07-22 17:23] VITALS: BP 172/94; TEMP 98.9
[2018-07-22 17:41] LABS: Amphetamine Screen,Urine Not Detected (NotDetected); Benzodiazepines Screen,Urine Not Detected (NotDetected); Cocaine Screen,Urine Detected (NotDetected); Methadone Screen, Urine Not Detected (NotDetected); Opiate Screen,Urine Not Detected (NotDetected); Phencyclidine Screen,Urine Not Detected (NotDetected); Tricyclic Antidepressant,Urine Not Detected (NotDetected); Urn Cannabinoid Scrn Not Detected (NotDetected)
[2018-07-22 17:42] LABS: Barbiturate Screen,Urine Not Detected (NotDetected); Oxycodone Screen, Urine Not Detected (NotDetected)
== END 2018-07-22 17:23 | disposition home or self-care (01) ==
LOC: EC 14:11
DX: F32.9 Major depressive disorder, single episode, unspecified (principal); R45.851 Suicidal ideations; F17.200 Nicotine dependence, unspecified, uncomplicated; Z79.899 Other long term (current) drug therapy
CPT/HCPCS: 80306; 82075; 99285